=== PATIENT | female | born 1960 | race Hispanic/Latino ===

== ENCOUNTER 2018-08-05 13:25 | Emergency (ER) | payer MEDICARE ==
[~2018-08-05] VITALS: Ht 160 cm; Wt 61.2 kg
[2018-08-05] MEDS ORDERED: BELLADONNA ALK/PHENOBARBITAL 5 ML UDC ONE (14:13)
[2018-08-05] MEDS ORDERED: LIDOCAINE VISC 2% SOLN 15 ML UDC ONE (14:13)
[2018-08-05] MEDS ORDERED: MAGNESIUM/ALUMINUM/SIMETHICONE 30 ML UDC ONE (14:13)
[2018-08-05] MEDS ORDERED: DONNATAL/LIDOCAINE/MAALOX 30 ML SUSP PO NR (14:15)
[2018-08-05 14:24] LABS: BASOPHILS % 0.4 % (0.0-1.0); EOSINOPHILS # (AUTO) 0.1 (0.0-0.4); EOSINOPHILS % 1.5 % (0.0-6.0); HEMATOCRIT 35.6 % (34.2-44.1); HEMOGLOBIN 12.6 g/dL (12.0-16.0); LYMPHOCYTES # (AUTO) 1.7 (1.0-3.2); LYMPHOCYTES % 30.7 % (18.0-39.1); MEAN CORPUSCULAR HGB CONC 35.4 g/dL (31-35); MONOCYTES # (AUTO) 0.5 (0.2-0.8); MONOCYTES % 9.1 % (4.4-11.3); NEUTROPHILS # (AUTO) 3.1 (2.1-6.9); NEUTROPHILS % 58.1 % (38.7-80.0); PLATELET COUNT 132 x10e3/uL (140-360); RED BLOOD COUNT 4.34 x10e6/uL (3.6-5.1); RED CELL DISTRIBUTION WIDTH 12.4 % (11.7-14.4)
--- NOTE | 2018-08-05 14:30 | Diagnostic Imaging Report ---
EXAMINATION: CHEST SINGLE (PORTABLE) INDICATION: Chest pain. COMPARISON: 04/19/2010. FINDINGS: TUBES and LINES: None. LUNGS: Lungs are well inflated. Lungs are clear. There is no evidence of pneumonia or pulmonary edema. PLEURA: No pleural effusion or pneumothorax. HEART AND MEDIASTINUM: The cardiomediastinal silhouette is unremarkable. BONES AND SOFT TISSUES: No acute osseous lesion. Soft tissues are unremarkable. UPPER ABDOMEN: No free air under the diaphragm. IMPRESSION: No acute thoracic abnormality. Signed by: Dr. Lashonda Mike M.D. on 08/05/2018 2:26 PM
[2018-08-05 14:45] LABS: INR 0.89; PARTIAL THROMBOPLASTIN TIME 26.9 seconds (23.8-35.5); PROTHROMBIN TIME 12.9 seconds (11.9-14.5)
[2018-08-05 14:54] LABS: ALANINE AMINOTRANSFERASE 11 IU/L (0-55); ALBUMIN 3.8 g/dL (3.5-5.0); ALBUMIN/GLOBULIN RATIO 1.2 (0.8-2.0); ALKALINE PHOSPHATASE 66 IU/L (40-150); BLOOD UREA NITROGEN 16 mg/dL (7-26); BUN/CREATININE RATIO 21 (6-25); CALCIUM 9.3 mg/dL (8.4-10.2); CARBON DIOXIDE 23 mmol/L (22-29); CHLORIDE 100 mmol/L (98-107); CREATINE KINASE 63 IU/L (29-168); CREATININE, SERUM 0.76 mg/dL (0.57-1.11); EST GLOMERULAR FILTRATION RATE > 60 ML/MIN (60-); GLUCOSE 129 mg/dL (74-118); MAGNESIUM 1.9 MG/DL (1.3-2.1); SODIUM 135 mmol/L (136-145)
[2018-08-05 15:14] LABS: CLARITY,URINE CLEAR (CLEAR); COLOR,URINE YELLOW (YELLOW); KETONES,URINE NEGATIVE (NEGATIVE); LEUKOCYTE ESTERASE ,URINE NEGATIVE (NEGATIVE); NITRITE,URINE NEGATIVE (NEGATIVE); PROTEIN,URINE DIPSTICK NEGATIVE (NEGATIVE)
[2018-08-05 15:15] LABS: BACTERIA,URINE RARE /HPF; BILIRUBIN,URINE NEGATIVE (NEGATIVE); EPITHELIAL CELLS,URINE RARE /LPF; RBC,URINE 0-5 /HPF (0-5); URINE UROBILINOGEN 0.2 mg/dL (0.2 - 1); WBC,URINE (MAN) 0-5 /HPF (0-5)
[2018-08-05] MEDS ORDERED: POTASSIUM CHLORIDE 20 MEQ TAB CR PO NR (15:30)
[2018-08-05 20:13] VITALS: BP 145/90
== END 2018-08-05 20:19 | disposition home or self-care (01) ==
LOC: ER 13:25
DX: R07.89 Other chest pain (principal); E87.6 Hypokalemia; K52.9 Noninfective gastroenteritis and colitis, unspecified
CPT/HCPCS: 36415; 71045; 80053; 81001; 82550; 82553; 83735; 83880; 84484; 85025; 85610; 85730; 93005; 99284

== ENCOUNTER 2018-12-21 09:04 | Emergency (ER) | payer MEDICARE ==
[~2018-12-21] VITALS: Ht 160 cm; Wt 61.2 kg
--- OUTSIDE RECORDS SUMMARY | 2018-12-21 09:07 | XMS REPORT | Continuity of Care Document ---
Author Author [facility] Interface Address Unknown Phone Unavailable Problems Problem Status Onset Date Classification Date Reported Comments Source Diabetes II with Neuropathy Active Problem 08/12/2014 [facility] Hallux valgus Active Problem 08/12/2014 [facility] Medications Medication Details Route Status Patient Instructions Ordering Provider Order Date Source Ultracet 2 tablets as needed Orally Active 37.5-325 MG Orally every 6 hrs Gale 03/25/2014 [facility] [place] 1-2 tablet as needed Orally Active 10-325 MG Orally every 4-6 hrs Gale 12/12/2013 [facility] Allergies, Adverse Reactions, Alerts Substance Category Reaction Severity Reaction type Status Date Reported Comments Source Immunizations Immunization Date Given Site Status Last Updated Comments Source Results Order Name Results Value Reference Range Date Interpretation Comments Source Vital Signs Vital Sign Value Date Comments Source Weight 160 12/10/2013 [facility] Encounters Location Location Details Encounter Type Encounter Number Reason For Visit Attending Provider ADM Date DC Date Status Source [facility] pain [id number] 12/12/2013 12/12/2013 [facility] pain [id number] 12/12/2013 12/12/2013 [facility] pain [id number] 12/12/2013 12/12/2013 [facility] pain [id number] 12/12/2013 12/12/2013 [facility] pain [id number] 12/12/2013 12/12/2013 [facility] Refill [id number] 12/19/2013 12/19/2013 [facility] Refill [id number] 12/19/2013 12/19/2013 [place] [facility] Refill [id number] 12/19/2013 12/19/2013 [facility] Refill [id number] 12/19/2013 12/19/2013 [facility] Unknown [id number] 03/25/2014 03/25/2014 [facility] Unknown [id number] 03/25/2014 03/25/2014 [facility] Unknown [id number] 03/25/2014 03/25/2014 [facility] Other [id number] 05/19/2014 05/19/2014 [place] [facility] Other [id number] 05/19/2014 05/19/2014 [place] [facility] Unknown [id number] 06/06/2014 06/06/2014 [facility] Unknown [id number] 06/06/2014 06/06/2014 [facility] Unknown [id number] 06/25/2014 06/25/2014 [facility] Unknown [id number] 06/25/2014 06/25/2014 [facility] Procedures Procedure Code Date Perfomer Comments Source
--- OUTSIDE RECORDS SUMMARY | 2018-12-21 09:07 | XMS REPORT ---
Author Author Liban Gale Organization [employer] Address Unknown Phone Unavailable Care Team Providers Care Lead Project Engineer Name Role Phone Liban Gale Unavailable Encounters Encounter Location Date pain [facility] December 12, 2013 Refill [facility] December 19, 2013 Problems Problem Type Condition ICD-9 Code Onset Dates Condition Status Problem Diabetes II with Neuropathy 250.60 Active Problem Hallux valgus 735.0 Active Social History Social History Element Qualifiers Date Reported Do you smoke? . Answer: No December 17, 2013 Use of recreational / street drugs? . Answer: No December 17, 2013 Tobacco Use: . Are you a:: former smoker , How long has it been since you last smoked?: > 10 years December 17, 2013 Marital Status: . December 17, 2013 Do you exercise? . Answer: No December 17, 2013 Do you drink alcohol? . 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
--- OUTSIDE RECORDS SUMMARY | 2018-12-21 09:07 | XMS REPORT ---
Author Author Liban Gale Organization [employer] Address Unknown Phone Unavailable Care Team Providers Care Technical Sales Support Manager Name Role Phone Liban Gale Unavailable Encounters Encounter Location Date Other [facility] May 19, 2014 Unknown [facility] Jun 06, 2014 Unknown [facility] Jun 25, 2014 pain [facility] December 12, 2013 Refill [facility] December 19, 2013 Unknown [facility] March 25, 2014 Problems Problem Type Condition ICD-9 Code Onset Dates Condition Status Problem Diabetes II with Neuropathy 250.60 Active Problem Hallux valgus 735.0 Active Social History Social History Element Qualifiers Date Reported Do you smoke? . Answer: No January 21, 2014 Use of recreational / street drugs? . Answer: No January 21, 2014 Tobacco Use: . Are you a:: former smoker , How long has it been since you last smoked?: > 10 years January 21, 2014 Marital Status: . January 21, 2014 Do you exercise? . Answer: No January 21, 2014 Do you drink alcohol? . 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
--- OUTSIDE RECORDS SUMMARY | 2018-12-21 09:07 | XMS REPORT | Clinical Summary ---
Author Author [facility] Organization [facility] Address Unknown Phone Unavailable Care Team Providers Care Inside Sales Agent Name Role Phone Grace Mitchell PCP Allergies Comments Active Allergy Reactions Severity Noted Date heart stopped Methadone 03/29/2007 Enalapril Cough 03/29/2007 Losartan Cough 05/19/2016 heart stopped Benzodiazepines 03/29/2007 Medications End Date Status Medication Sig Dispensed Refills Start Date Active ASPIRIN 81 MG TAB 1 TABLET 0 DAILY Active ERGOCALCIFEROL, VITAMIN Take 1 0 D2, OR capsule by mouth weekly. Active gabapentin (NEURONTIN) Take 1 270 capsule 0 100 mg capsule by 6 capsuleIndications: mouth 3 times Uncontrolled type 2 daily. diabetes mellitus with peripheral neuropathy Active blood glucose test Check blood 50 Each 11 stripsIndications: glucose 3 6 Uncontrolled type 2 times daily diabetes mellitus with peripheral neuropathy Active lancets 28 Check blood 100 Each 11 gaugeIndications: glucose 3 6 Uncontrolled type 2 times daily. diabetes mellitus with peripheral neuropathy Active escitalopram oxalate Take 1 tablet 0 (LEXAPRO) 20 mg tablet by mouth 8 daily. Active metoprolol tartrate Take 0.5 90 tablet 1 (LOPRESSOR) 25 mg tablets by 8 tabletIndications: mouth 2 times Essential hypertension, daily. benign Active dicyclomine (BENTYL) 10 Take 1 90 capsule 1 mg capsuleIndications: capsule by 8 Irritable bowel syndrome mouth 3 times with diarrhea daily. Active metFORMIN (GLUCOPHAGE) Take 1 tablet 180 tablet 1 500 mg tabletIndications: by mouth 2 8 Type 2 diabetes mellitus times daily without complication, (with meals). without long-term current use of insulin Active OLANZapine (ZYPREXA) 5 mg Take 1 tablet 0 10/15/201 tablet by mouth at 8 bedtime nightly. Active blood glucose meter Use as 1 Kit 0 (PRECISION XTRA directed.. 8 GLUCOMETER)Indications: Type 2 diabetes mellitus without complication, without long-term current use of insulin Active blood glucose (PRECISION Use 2 times 50 Each 3 XTRA TEST STRIPS) test weekly (once 8 stripsIndications: Type 2 per day on diabetes mellitus without Mon,Thurs) to complication, without test blood long-term current use of sugar. insulin Active estrogen, Take 1 tablet 28 tablet 1 conjugated,-medroxyproges by mouth 8 terone (PREMPRO) daily. 0.625-2.5 mg per tabletIndications: Vasomotor symptoms due to menopause Active traMADol (ULTRAM) 50 mg Take 50 mg by 0 tablet mouth every 6 hours as needed for Pain. Active valsartan-hydrochlorothia Take 1 tablet 0 zide (DIOVAN HCT) by mouth 160-12.5 mg tablet daily. Active Saxagliptin (ONGLYZA) 5 Take by 0 mg Tab mouth. Active Misc. Devices (GLIPIZIDE) 0 Active glipiZIDE (GLUCOTROL XL) Take 2.5 mg 0 2.5 mg extended release by mouth tablet daily. Active hyoscyamine (LEVSIN/SL) Place 1 30 tablet 0 0.125 mg sublingual tablet under 9 tabletIndications: tongue every Nephrolithiasis, Bladder 4 hours as spasms needed (bladder spasms). Active tamsulosin (FLOMAX) 0.4 Take 1 30 capsule 3 mg extended release capsule by 9 capsuleIndications: mouth daily. Nephrolithiasis Active traMADol (ULTRAM) 50 mg Take 1 tablet 30 tablet 0 tabletIndications: by mouth 9 Nephrolithiasis, every 6 hours Displacement of ureteral as needed for stent, initial encounter, Pain. Pain 05/24/2018 Discontinued dicyclomine (BENTYL) 10 Take 1 90 capsule 1 mg capsuleIndications: capsule by 6 Irritable bowel syndrome mouth 3 times with diarrhea daily. 10/19/2018 Discontinued blood glucose Use as 1 Kit 0 meterIndications: directed.. 6 Uncontrolled type 2 diabetes mellitus with peripheral neuropathy 04/12/2018 Discontinued metoprolol tartrate Take 0.5 60 tablet 2 (LOPRESSOR) 25 mg tablets by 7 tabletIndications: mouth 2 times Essential hypertension, daily. benign 04/12/2018 Discontinued metFORMIN (GLUCOPHAGE) Take 1 tablet 180 tablet 1 500 mg tabletIndications: by mouth 2 7 Controlled type 2 times daily diabetes mellitus without (with meals). complication, without long-term current use of insulin 10/19/2018 Discontinued dicyclomine (BENTYL) 10 Take 1 60 capsule 0 mg capsuleIndications: capsule by 7 Irritable bowel syndrome mouth 3 times with diarrhea daily. 06/18/2018 Discontinued estrogen, Take 1 tablet 28 tablet 3 conjugated,-medroxyproges by mouth 8 terone (PREMPRO) daily. 0.625-2.5 mg per tabletIndications: Hormone imbalance 06/18/2018 Discontinued lamoTRIgine (LAMICTAL) 25 Take by 0 mg tablet mouth. 06/18/2018 Discontinued QUEtiapine (SEROQUEL) 100 Take 1 tablet 0 mg tablet by mouth 2 8 times daily. 06/18/2018 Discontinued metFORMIN (GLUCOPHAGE) Take 1 tablet 180 tablet 1 500 mg tabletIndications: by mouth 2 8 Type 2 diabetes mellitus times daily without complication, (with meals). without long-term current use of insulin 06/18/2018 tropicamide (MYDRIACYL) Instill 1 15 mL 0 0.5 % ophthalmic Drop in each 8 solutionIndications: Type eye once as 2 diabetes mellitus needed for up without complication, to 1 dose without long-term current (for poor use of insulin retina scan image). 10/19/2018 Discontinued lancets 28 Use 2 times 100 Each 1 gaugeIndications: Type 2 weekly as 8 diabetes mellitus without directed. complication, without long-term current use of insulin Active Problems Problem Noted Date Kidney stone 10/19/2018 Nephrolithiasis 10/19/2018 Overview: Added automatically from request for surgery [id number] Bipolar 1 disorder 06/18/2018 Schizophrenia 06/18/2018 Irritable bowel syndrome with diarrhea 04/07/2016 Anxiety 04/07/2016 Essential hypertension, benign Hepatitis C Proteinuria Pure hypercholesterolemia Uncontrolled type 2 diabetes mellitus with kidney complication, without long-term current use of insulin Left lower quadrant pain Thrombocytopenia Left flank pain S/P ureteral stent placement Encounters Care Team Description Date Type Specialty Siobhan Daly 10/22/2018 Anesthesia Event [place]ano Waldron MD CYSTOSCOPY, Left Retro Grade Pyelogram and Left Ureteral Stent Placement 10/22/2018 Surgery Romel Reyes MD Koka, Sagarika, MD Nephrolithiasis (Primary Dx); Left lower quadrant pain; Renal calculi; Thrombocytopenia; Bladder spasms; Displacement of ureteral stent, initial encounter; Pain; Essential hypertension, benign; Uncontrolled type 2 diabetes mellitus with kidney complication, without long- term current use of insulin 10/19/2018 Emergency - 10/23/2018 10/19/2018 Travel Grace Mitchell DO Type 2 diabetes mellitus without complication, without long-term current use of insulin (Primary Dx); Essential hypertension, benign; Preventative health care; Bipolar 1 disorder; Schizophrenia, unspecified type; Vasomotor symptoms due to menopause 06/18/2018 Office Visit [facility] Grace Mitchell DO Type 2 diabetes mellitus without complication, without long-term current use of insulin 06/18/2018 Orders Only [facility] Yoshi Ortiz III, MD Irritable bowel syndrome with diarrhea 05/24/2018 Refill [facility] Yoshi Ortiz III, MD Essential hypertension, benign (Primary Dx); Type 2 diabetes mellitus without complication, without long-term current use of insulin; Immunization due 04/12/2018 Office Visit Family Practice Pérez Paulino MD Anxiety (Primary Dx) 04/09/2018 Emergency Emergency Medicine after 10/25/2017 Immunizations Name Dates Previously Given Next Due Influenza Vaccine, 07/13/2017 Seasonal, Injectable PPV 23 (Pneumococcal 04/12/2018 Polysaccharide 23 [place]) Tdap (Tetanus Toxoid, 04/12/2018 Reduced Diphtheria Toxoid And Acellular Pertussis, Absorbed) Family History Medical History Relation Name Comments Arthritis Maternal Grandmother Asthma Maternal Grandmother Cancer Maternal Grandmother Diabetes Maternal Grandmother Heart Maternal Grandmother Hypertension Maternal Grandmother Stroke Maternal Grandmother Heart Mother Hypertension Mother Relation Name Status Comments Maternal Grandmother Mother Social History Date Tobacco Use Types Packs/Day Years Used Former Smoker Smokeless Tobacco: Never Used Comments: quit 17 years ago Alcohol Use Drinks/Week oz/Week Comments No Sex Assigned at Date Recorded Not on file Industry Job Start Date Occupation Not on file Not on file Not on file Travel End Travel History Travel Start No recent travel history available. Last Filed Vital Signs Time Taken Vital Sign Reading 10/23/2018 7:19 AM [facility] Blood Pressure 133/71 10/23/2018 7:19 AM [facility] Pulse 76 10/23/2018 7:19 AM [facility] Temperature 36.8 C (98.2 F) 10/23/2018 7:19 AM [facility] Respiratory Rate 18 10/22/2018 3:10 PM [facility] Oxygen Saturation 97% - Inhaled Oxygen - Concentration 10/23/2018 4:00 AM [facility] Weight 65 kg (143 lb 6.4 oz) 10/19/2018 9:00 PM [facility] Height 162.6 cm (5' 4") 10/19/2018 9:00 PM [facility] Body Mass Index 24.61 Plan of Treatment Care Team Description Date Type Specialty Yoshi Ortiz III, MD [address] [place] [address] [id number] [place] [address] [phone] 11/05/2018 Office Visit Family Practice 11/15/2018 Office Visit Urology Health Maintenance Due Date Last Done Comments DM Retinal Exam (Yearly) 06/28/2018 06/28/2017, 05/11/2016 Breast Cancer Scrn 07/18/2018 07/18/2017, 05/11/2016, 06/11/2007 (Yearly) Cervical Cancer Scrn (3 12/03/2018 12/04/2015 (Previously completed - Yrs) External) DM Foot Exam (Yearly) 04/12/2019 04/12/2018, 07/13/2017, 06/15/2017, Additional history exists Colorectal Cancer Scrn 07/13/2019 07/13/2018, 06/22/2017, 04/13/2016 Annual (FIT/FOBT) Age 50 to 75 DM HGBA1C (Yearly) 10/20/2019 10/20/2018, 06/12/2018, 06/01/2017, Additional history exists Goals Goal Patient Associated Recent Progress Patient-Stat Author Goal Type Problems ed? gain weight General Yes Eveline Belle Note: Would like to gain weight back Eat Healthy Lifestyle No Eveline Belle Note: Unable to eat regular food Implants Device Identifier Shelf Expiration Date Model / Serial / Lot Implanted Type Area Manufactur er 02/25/2021 [id number] / / Lbj Stent Ureteral 6fr 24cm Ascerta Stent Left: Ureter(s) [facility] - [id number] cturer Implanted: Qty: 1 on 10/22/2018 by Rohith Boyle ResidentMD Procedures Comments Procedure Name Priority Date/Time Associated Diagnosis GLUCOSE POC Routine 10/23/2018 11:26 AM [facility] GLUCOSE POC Routine 10/23/2018 6:46 AM [facility] MAGNESIUM Routine 10/23/2018 5:20 AM [facility] PHOSPHORUS Routine 10/23/2018 5:20 AM [facility] BASIC METABOLIC PANEL Routine 10/23/2018 5:20 AM [facility] CBC/DIFF Routine 10/23/2018 5:20 AM [facility] GLUCOSE POC Routine 10/22/2018 8:34 PM [facility] GLUCOSE POC Routine 10/22/2018 4:26 PM [facility] GLUCOSE POC Routine 10/22/2018 2:46 PM [facility] [id number] Routine 10/22/2018 1:59 PM [facility] Procedure Note - Siobhan Daly - 10/22/2018 1:59 PM [facility] Intubation Date/Time: 10/22/2018 1:33 PM Urgency: elective Airway not difficult General Informatio n and Staff Patient location during procedure: OR Anesthesio logist: Adriana Winslow MD Resident/C RNA: Alexys Arreguin CRNA Other anesthesia staff: Siobhan Daly Performed: anesthesio logist Indicatio ns and Patient Condition Indication s for airway management : anesthesia Spontaneou s ventilatio n: present Preoxygena dashawn: yes Patient position: sniffing Mask difficulty assessment : 0 - not attempted Final Airway Details Final airway type: endotrache al airway Successful airway: ETT Cuffed: yes Successful intubation technique: direct Facilitati ng devices/me thods: intubating stylet Endotrache al tube insertion site: oral Blade: Sumit Blade size: #3 Cords visualized : grade 1 Placement verified by: chest auscultati on and capnometry Measured from: lips ETT to lips (cm): 21 Number of attempts at approach: 1 UROL - CYSTOSCOPY 10/22/2018 Nephrolithiasis 11:35 AM [facility] GLUCOSE POC Routine 10/22/2018 10:51 AM [facility] U/S ABDOMEN LIMITED Routine 10/22/2018 Thrombocytopenia 9:45 AM [facility] GLUCOSE POC Routine 10/22/2018 6:59 AM [facility] IRON PROFILE Routine 10/22/2018 4:40 AM [facility] FERRITIN Routine 10/22/2018 4:40 AM [facility] VITAMIN B12 Routine 10/22/2018 4:40 AM [facility] LIVER PROFILE Routine 10/22/2018 4:40 AM [facility] PHOSPHORUS Routine 10/22/2018 4:40 AM [facility] MAGNESIUM Routine 10/22/2018 4:40 AM [facility] CBC/DIFF Routine 10/22/2018 4:40 AM [facility] BASIC METABOLIC PANEL Routine 10/22/2018 4:40 AM [facility] HCV RNA QUANT, PCR Routine 10/22/2018 4:40 AM [facility] GLUCOSE POC Routine 10/21/2018 8:54 PM [facility] GLUCOSE POC Routine 10/21/2018 4:42 PM [facility] GLUCOSE POC Routine 10/21/2018 4:10 PM [facility] GLUCOSE POC Routine 10/21/2018 11:15 AM [facility] CITRATED PLATELET Routine 10/21/2018 10:48 AM [facility] HIV-1/HIV-2 ROUTINE Routine 10/21/2018 SCREENING 10:48 AM [facility] VITAMIN B12 Routine 10/21/2018 10:48 AM [facility] FERRITIN Routine 10/21/2018 10:48 AM [facility] IRON PROFILE Routine 10/21/2018 10:48 AM [facility] CBC/DIFF Routine 10/21/2018 10:48 AM [facility] PHOSPHORUS Routine 10/21/2018 8:56 AM [facility] MAGNESIUM Routine 10/21/2018 8:56 AM [facility] BASIC METABOLIC PANEL Routine 10/21/2018 8:56 AM [facility] CBC/DIFF Routine 10/21/2018 8:56 AM [facility] GLUCOSE POC Routine 10/21/2018 6:55 AM [facility] GLUCOSE POC Routine 10/20/2018 9:06 PM [facility] GLUCOSE POC Routine 10/20/2018 4:41 PM [facility] GLUCOSE POC Routine 10/20/2018 11:19 AM [facility] GLUCOSE POC Routine 10/20/2018 7:12 AM [facility] DUPLEX DOPPLER UPPER STAT 10/20/2018 EXTREMITY VENOUS, 6:20 AM [facility] UNILATERAL OR LIMITED SEQUENTIAL COMPRESSION Routine 10/20/2018 PUMP 4:59 AM [facility] HEMOGLOBIN A1C Routine 10/20/2018 4:00 AM [facility] PHOSPHORUS Routine 10/20/2018 4:00 AM [facility] MAGNESIUM Routine 10/20/2018 4:00 AM [facility] BASIC METABOLIC PANEL Routine 10/20/2018 4:00 AM [facility] CBC/DIFF Routine 10/20/2018 4:00 AM [facility] URINE DRUG SCREEN Routine 10/20/2018 4:00 AM [facility] SEQUENTIAL COMPRESSION Routine 10/19/2018 PUMP 10:15 PM [facility] GLUCOSE POC Routine 10/19/2018 9:20 PM [facility] ABG POC Routine 10/19/2018 8:00 PM [facility] URINE CULTURE Routine 10/19/2018 3:00 PM [facility] UA CHEMISTRIES STAT 10/19/2018 3:[address] ABDOMEN AND PELVIS STAT 10/19/2018 Left lower quadrant pain CONTRAST 2:28 PM [facility] 12 LEAD EKG Routine 10/19/2018 12:08 PM [facility] BMP POC Routine 10/19/2018 12:05 PM [facility] VBG POC Routine 10/19/2018 12:05 PM [facility] TROPONIN I POC Routine 10/19/2018 12:03 PM [facility] LIPASE STAT 10/19/2018 11:58 AM [facility] LIVER PROFILE STAT 10/19/2018 11:58 AM [facility] CBC/DIFF STAT 10/19/2018 11:58 AM [facility] OCCULT BLOOD ICT Routine 07/13/2018 Preventative health care 2:19 PM [facility] HIV-1/HIV-2 ROUTINE Routine 06/12/2018 Type 2 diabetes mellitus SCREENING 8:15 AM CDT without complication, without long-term current use of insulin UREA NITROGEN/CREA Routine 06/12/2018 Type 2 diabetes mellitus 8:15 AM CDT without complication, without long-term current use of insulin LIPID PROFILE Routine 06/12/2018 Type 2 diabetes mellitus 8:15 AM CDT without complication, without long-term current use of insulin GLUCOSE Routine 06/12/2018 Type 2 diabetes mellitus 8:15 AM CDT without complication, without long-term current use of insulin CBC/DIFF Routine 06/12/2018 Type 2 diabetes mellitus 8:15 AM CDT without complication, without long-term current use of insulin ELECTROLYTES Routine 06/12/2018 Type 2 diabetes mellitus 8:15 AM CDT without complication, without long-term current use of insulin HEMOGLOBIN A1C Routine 06/12/2018 Type 2 diabetes mellitus 8:15 AM CDT without complication, without long-term current use of insulin MICROALBUM, URINE Routine 04/12/2018 Type 2 diabetes mellitus 10:55 AM CDT without complication, without long-term current use of insulin DIABETIC FOOT EXAM Routine 04/12/2018 Type 2 diabetes mellitus 10:50 AM CDT without complication, without long-term current use of insulin BMP POC Routine 04/09/2018 4:49 AM CDT UA CHEMISTRIES STAT 04/09/2018 4:40 AM CDT after 10/25/2017 Results * GLUCOSE POC (10/23/2018 11:26 AM [facility]) Only the most recent of 17 results within the time period is included. Glucose POC 129 (H) 74 - 106 mg/dL [facility] Performing Organization Address [facility] Phone Number [facility] 1 * PHOSPHORUS (10/23/2018 5:20 AM [facility]) Only the most recent of 4 results within the time period is included. Phosphorus 3.5 2.5 - 5.0 mg/dL [facility] 1 Specimen Blood Performing Organization Address [facility] Phone Number [facility] 1 * MAGNESIUM (10/23/2018 5:20 AM [facility]) Only the most recent of 4 results within the time period is included. Magnesium 2.1 1.9 - 2.7 mg/dL [facility] 1 Specimen Blood Performing Organization Address [facility] Phone Number [facility] 1 * CBC/DIFF (10/23/2018 5:20 AM [facility]) Only the most recent of 7 results within the time period is included. WBC 4.8 4.5 - 11.0 K/uL [facility] 2 RBC 3.98 (L) 4.20 - 5.40 M/uL [facility] 2 Hemoglobin 11.6 (L) 12.0 - 16.0 g/dL [facility] 2 Hematocrit 34.0 (L) 37.0 - 47.0 % [facility] 2 MCV 85 82 - 92 fL [facility] 2 MCH 29.1 27.0 - 32.0 pg [facility] 2 MCHC 34.1 32.0 - 36.0 g/dL [facility] 2 RDW 36.9 36.4 - 46.3 fL [facility] 2 Platelet 105 (L) 150 - 400 K/uL [facility] 2 Mean Platelet 10.0 9.4 - 12.4 fL [facility] Volume [facility] 2 Percent NRBC 0.0 [facility] 2 Absolute NRBC 0.00 [facility] 2 Neutrophil 59.2 34.0 - 70.0 % [facility] 2 Lymphocyte 29.9 20.0 - 50.0 % [facility] 2 Monocyte 7.2 5.0 - 12.0 % [facility] 2 Eosinophil 2.9 0.7 - 5.0 % [facility] 2 Basophil 0.4 0.1 - 1.2 % [facility] 2 Pct Immat Gran 0.4 0.0 - 0.5 [facility] 2 Neutrophil, Abs 2.81 1.56 - 6.13 K/uL [facility] 2 Lymphocyte, Abs 1.42 1.18 - 3.74 K/uL [facility] 2 Monocyte, Abs 0.34 0.24 - 0.36 K/uL [facility] 2 Eosinophil, Abs 0.14 0.04 - 0.36 K/uL [facility] 2 Basophil, Abs 0.02 0.01 - 0.08 K/uL [facility] 2 Absol Immat 0.02 0.00 - 0.03 K/uL [facility] Gran [facility] 2 Specimen Blood Performing Organization Address City/State/Zipcode Phone Number [facility] * BASIC METABOLIC PANEL (10/23/2018 5:20 AM [facility]) Only the most recent of 4 results within the time period is included. CO2 29 21 - 31 mmol/L [facility] 1 Chloride 105 98 - 107 mmol/L [facility] 1 Potassium 3.7 3.5 - 5.1 mmol/L [facility] 1 Sodium 142 136 - 145 mmol/L [facility] 1 Glucose 86 70 - 110 mg/dL [facility] 1 Urea Nitrogen 8 7 - 25 mg/dL [facility] 1 Creatinine 0.60 0.6 - 1.2 mg/dL [facility] 1 Anion Gap 8 [facility] 1 Calcium 8.0 (L) 8.6 - 10.3 mg/dL [facility] 1 GFR, Estimated >60 mL/min/1.73 m2 [facility] 1 GFR, Estim, >60 mL/min/1.73 m2 [facility] Afr-Am [facility] 1 Specimen Blood Performing Organization Address City/State/Zipcode Phone Number [facility] * U/S ABDOMEN LIMITED (10/22/2018 9:45 AM [facility]) Impressions Performed At IMPRESSION: SMS 1.Spleen size is at the upper limits of normal. 2.Mild coarsened hepatic echotexture suggesting possible underlying hepatocellular disease. 3.Surgically absent gallbladder. This [facility] radiology report is a preliminary resident dictation until finalized by an attending.Changes to this preliminary report may occur in an additional preliminary or finalized version. Dictated By: Ricardo Rich MD, 10/22/2018 10:05 AM I have reviewed the study and agree with the findings in this report. Signed By: Lex Diamond MD, 10/22/2018 10:30 AM Narrative Performed At EXAM: US ABDOMEN LIMITED [facility] DATE: 10/22/2018 6:44 AM INDICATION: Thrombocytopenia. Thrombocytopenia ADDITIONAL INFORMATION: None. COMPARISON: CT abdomen pelvis from 10/19/2018. TECHNIQUE: Multiplanar grayscale and color Doppler ultrasound of the right upper quadrant. FINDINGS: Liver: Craniocaudal length: 15 cm. Echogenicity: Mildly coarsened. Surface: Normal. Mass (size and location): None. Main portal vein: Caliber: 1.2 cm. Flow: Hepatopetal. Bile ducts: Common bile duct diameter: 0.4 cm. Intrahepatic ducts: Normal. Gallbladder: Post cholecystectomy. Pancreas: Partially obscured. No focal lesions. Spleen: Size: 12.8 x 6.4 x 6.9 cm. Mass or focal lesion (size and location): Focal shadowing hyperechogenicity within the splenic parenchyma measuring 0.4 cm most likely represents a splenic granuloma possibly from prior infection, correlating with focal splenic calcification on the recent CT. Right kidney: Size: 11.1 x 4.9 x 5.8 cm. Cortical thickness: Normal. Hydronephrosis: None. Echogenicity: Normal. Calculi: None. Cysts/Masses: None. Free fluid: None. Other: None. Procedure Note Interface, Rad/Mammog In - 10/22/2018 10:54 AM [facility] EXAM: US ABDOMEN LIMITED DATE: 10/22/2018 6:44 AM INDICATION: Thrombocytopenia. Thrombocytopenia ADDITIONAL INFORMATION: None. COMPARISON: CT abdomen pelvis from 10/19/2018. TECHNIQUE: Multiplanar grayscale and color Doppler ultrasound of the right upper quadrant. FINDINGS: Liver: Craniocaudal length: 15 cm. Echogenicity: Mildly coarsened. Surface: Normal. Mass (size and location): None. Main portal vein: Caliber: 1.2 cm. Flow: Hepatopetal. Bile ducts: Common bile duct diameter: 0.4 cm. Intrahepatic ducts: Normal. Gallbladder: Post cholecystectomy. Pancreas: Partially obscured. No focal lesions. Spleen: Size: 12.8 x 6.4 x 6.9 cm. Mass or focal lesion (size and location): Focal shadowing hyperechogenicity within the splenic parenchyma measuring 0.4 cm most likely represents a splenic granuloma possibly from prior infection, correlating with focal splenic calcification on the recent CT. Right kidney: Size: 11.1 x 4.9 x 5.8 cm. Cortical thickness: Normal. Hydronephrosis: None. Echogenicity: Normal. Calculi: None. Cysts/Masses: None. Free fluid: None. Other: None. IMPRESSION IMPRESSION: 1. Spleen size is at the upper limits of normal. 2. Mild coarsened hepatic echotexture suggesting possible underlying hepatocellular disease. 3. Surgically absent gallbladder. This [facility] radiology report is a preliminary resident dictation until finalized by an attending. Changes to this preliminary report may occur in an additional preliminary or finalized version. Dictated By: Ricardo Rich MD, 10/22/2018 10:05 AM I have reviewed the study and agree with the findings in this report. Signed By: Lex Diamond MD, 10/22/2018 10:30 AM Performing Organization Address City/[facility]/[employer] Phone Number SMS * HCV RNA QUANT, PCR (10/22/2018 4:40 AM BELT GLASS SANDER) HCV RNA QUANT, Not detected IU/mL BT MOLECULAR PCR Comment: PATHOLOGY This test utilizes FDA cleared STEPHANIE AmpliPrep/STEPHANIE TaqMan HCV test, v2.0 from [employer] which allows detection of viral loads between 15 copies/mL and 100,000,000 of plasma. When the result is less than 15 copies/mL of HCV RNA is obtained, the test will be reported as less than 15 copies/mL. STEPHANIE AmpliPrep/STEPHANIE TaqMan HCV test, v2.0 is NOT intended for use as a screening test for the presence of HCV RNA in blood or as a diagnostic test to confirm the presence of HCV infection. This test is intended for use as an aid in the management of patients with HCV infection. Specimen Blood Performing Organization Address [facility] Phone Number MISYS MOLECULAR PATHOLOGY * FERRITIN (10/22/2018 4:40 AM BELT GLASS SANDER) Only the most recent of 2 results within the time period is included. Ferritin 24.00 11.0 - 306.8 ng/mL [facility] MAIN-STATION 1 Performing Organization Address [facility] Phone Number MISYS [facility] MAIN-STATION 1 * VITAMIN B12 (10/22/2018 4:40 AM BELT GLASS SANDER) Only the most recent of 2 results within the time period is included. Vitamin B12 279 211 - 911 pg/mL BT MAIN-STATION 1 Performing Organization Address [facility] Phone Number MISYS BT MAIN-STATION 1 * LIVER PROFILE (10/22/2018 4:40 AM BELT [facility]ASS SANDER) Only the most recent of 2 results within the time period is included. T Protein 5.2 (L) 6.0 - 8.3 g/dL [facility] MAIN-STATION 1 Albumin 3.1 (L) 3.7 - 5.3 g/dL [facility] MAIN-STATION 1 T Bilirubin 0.6 0.2 - 1.2 mg/dL [facility] MAIN-STATION 1 Alk Phos 36 34 - 104 U/L [facility] MAIN-STATION 1 AST 14 13 - 39 U/L [facility] MAIN-STATION 1 ALT 9 7 - 52 U/L [facility] MAIN-STATION 1 D Bilirubin 0.2 0.0 - 0.2 mg/dL [facility] MAIN-STATION 1 Specimen Blood Performing Organization Address [facility] Phone Number MISYS [facility] MAIN-STATION 1 * IRON PROFILE (10/22/2018 4:40 AM [facility]T [facility] SANDER) Only the most recent of 2 results within the time period is included. Iron 58 50 - 212 ug/dL BT MAIN-STATION 1 TIBC 333 250 - 450 ug/dL BT MAIN-STATION 1 % Iron Sat 17 % BT MAIN-STATION 1 Performing Organization Address [facility] Phone Number MISYS BT MAIN-STATION 1 * CITRATED PLATELET (10/21/2018 10:48 AM BELT GLASS SANDER) Citrated 79.2 [facility] Platelet MAIN-STATION 2 Performing Organization Address [facility] Phone Number MISYS [facility] MAIN-STATION 2 * HIV-1/HIV-2 ROUTINE SCREENING (10/21/2018 10:48 AM BELT GLASS SANDER) Only the most recent of 2 results within the time period is included. HIV-1/HIV-2 Negative NEG [facility] BLOOD BANK Performing Organization Address [facility] Phone Number [facility] BLOOD BANK * DUPLEX DOPPLER UPPER EXTREMITY VENOUS, UNILATERAL OR LIMITED (10/20/2018 6:20 AM BELT GLASS SANDER) Impressions Performed At IMPRESSION: SMS 1.No deep venous thrombosis (DVT) in the interrogated deep veins of the left upper extremity. 2.Mild left upper extremity edema without drainable collections. Signed By: Michoacano Betts MD, 10/20/2018 9:14 AM Narrative Performed At EXAM:DUPLEX DOPPLER UPPER EXTREMITY VENOUS, LEFT US SMS DATE: 10/20/2018 6:20 AM INDICATION: r/o dvt COMPARISON: None available. TECHNIQUE: Grayscale real-time, color, and spectral Doppler imaging of the left upper extremity venous system was performed. FINDINGS: Left Upper Extremity Veins: Internal Jugular: Patent. Subclavian: Patent. Axillary: Patent. Brachial: Patent. Basilic: Patent. Cephalic: Compressible. Other: Mild left upper extremity edema. No drainable collections. Procedure Note Interface, Rad/Mammog In - 10/20/2018 9:20 AM BELT GLASS SANDER EXAM: DUPLEX DOPPLER UPPER EXTREMITY VENOUS, LEFT US DATE: 10/20/2018 6:20 AM INDICATION: r/o dvt COMPARISON: None available. TECHNIQUE: Grayscale real-time, color, and spectral Doppler imaging of the left upper extremity venous system was performed. FINDINGS: Left Upper Extremity Veins: Internal Jugular: Patent. Subclavian: Patent. Axillary: Patent. Brachial: Patent. Basilic: Patent. Cephalic: Compressible. Other: Mild left upper extremity edema. No drainable collections. IMPRESSION IMPRESSION: 1. No deep venous thrombosis (DVT) in the interrogated deep veins of the left upper extremity. 2. Mild left upper extremity edema without drainable collections. Signed By: Michoacano Betts MD, 10/20/2018 9:14 AM Performing Organization Address City/[facility] Phone Number SMS * HEMOGLOBIN A1C (10/20/2018 4:00 AM [facility]T [facility] SANDER) Only the most recent of 2 results within the time period is included. Hemoglobin A1c 5.4 4.3 - 6.1 % LB MAIN-STATION 1 Est Average 108.3 mg/dL LB Gluc MAIN-STATION 1 Specimen Blood Performing Organization Address [facility] Phone Number MISYS [facility] MAIN-STATION 1 * URINE DRUG SCREEN (10/20/2018 4:00 AM [facility]T [facility] SANDER) Amphetamine Negative NEG [facility] Comment: MAIN-STATION 1 Calibrated Standard: D-Methamphetamine Positive if urine level >so=4266 ng/mL Test performed on [id number] using [employer] Immunoassay Barbiturate Negative NEG [facility] Comment: MAIN-STATION 1 Calibrated Standard: Secobarbital Positive if urine level is >jd=778 ng/mL Test performed on [id number] using [employer] Immun[employer]assay Benzodiazepine Negative NEG [facility] Comment: MAIN-STATION 1 Calibrated Standard: Lormethazepam Positive if urine level is >ir=254 ng/mL Test performed on [id number] using [employer] Immun[employer] Cannabinoid Negative NEG [facility] Comment: MAIN-STATION 1 Calibrated Standard: 11 nor-delta(9)-THC carboxylic a Positive if urine level >or=50 Test performed on [id number] using [employer] Immunoassay Cocaine Negative NEG [facility] Comment: MAIN-STATION 1 Calibrated Standard: Benzoylecgonine Positive if urine level >vo=261 Test performed on [id number] using [employer] Immun[employer] Opiate, Ur Positive (A) NEG [facility] Comment: MAIN-STATION 1 Calibrated Standard: Morphine Positive if urine level >pc=479 Test performed on [id number] using [employer] Immunoassay PCP Negative NEG LB Comment: MAIN-STATION 1 Calibrated Standard: Phencyclidine Positive if urine level >or=25 Test performed on [id number] using [employer] Immunoassay Urine Toxicology Screen results are to be used only for Medical purposes. Specimen Urine Performing Organization Address [facility] Phone Number MISYS [facility] MAIN-STATION 1 * ABG POC (10/19/2018 8:00 PM BELT [employer] SANDER) pH, Art POC 7.41Comment: Physician 7.35 - 7.45 [facility] Notified MAIN-STATION 1 pCO2,Art POC 39.1 32.0 - 45.0 mm Hg [facility] MAIN-STATION 1 pO2, Art POC 51 (L) 72 - 104 mm Hg [facility] MAIN-STATION 1 Base Excess, 0 mmol/L [facility] POC MAIN-STATION 1 HCO3, Art POC 25.0 22.0 - 26.0 mmol/L [facility] MAIN-STATION 1 % Sat, Art POC 86 (L) 95 - 99 % [facility] MAIN-STATION 1 Lactic Acid POC 2.71 (H) 0.4 - 2.0 mmol/L [facility] MAIN-STATION 1 Sample Type Art [facility] MAIN-STATION 1 TCO2, ART POC 26 21 - 32 mmol/L [facility] MAIN-STATION 1 Performing Organization Address [facility] Phone Number MILAN [facility] MAIN-STATION 1 * UA CHEMISTRIES (10/19/2018 3:00 PM BELT [employer] SANDER) Only the most recent of 2 results within the time period is included. Color Yellow [facility] MAIN-STATION 2 Clarity Clear [facility] MAIN-STATION 2 Spec [place] 1.030 1.001 - 1.035 [facility] MAIN-STATION 2 pH 7.0 5 - 8 [facility] MAIN-STATION 2 Protein 1+ (A) NEG [facility] MAIN-STATION 2 Glucose 2+ (A) NEG [facility] MAIN-STATION 2 Ketone 1+ (A) NEG [facility] MAIN-STATION 2 Bilirubin Negative NEG [facility] MAIN-STATION 2 Nitrate Negative NEG [facility] MAIN-STATION 2 Urobilinogen <1.0 0.2 - 1.0 EU/dL LB MAIN-STATION 2 Leukocyte Negative NEG [facility] MAIN-STATION 2 Blood 3+ (A) NEG [facility] MAIN-STATION 2 RBC >182 (H) 0 - 4 /HPF [facility] MAIN-STATION 2 WBC 1 0 - 5 /HPF [facility] MAIN-STATION 2 Epithelial Cell 2 /HPF [facility] MAIN-STATION 2 Mucous Present [facility] MAIN-STATION 2 Specimen Urine Performing Organization Address [facility] Phone Number MISYS [facility] MAIN-STATION 2 * URINE CULTURE (10/19/2018 3:00 PM BELT [facility]ASS SANDER) Spec Clean catch urine [facility] Description MICROBIOLOGY Order Comments None [facility] MICROBIOLOGY Culture Multiple organisms present: no BT MICROBIOLOGY further work workup will be performed Report Status Final 10/25/2018 BT MICROBIOLOGY Specimen Urine clean catch - CLEAN CATCH URINE Performing Organization Address [facility] Phone Number MISYS [facility] MICROBIOLOGY BT MICROBIOLOGY * CT ABDOMEN AND PELVIS CONTRAST (10/19/2018 2:28 PM BELT GLASS SANDER) Impressions Performed At IMPRESSION: SMS 1. Left side obstructive uropathy with two 3-4 mm diameter calculi at about the level of the L3 inferior endplate and proximal hydroureter and pyelosinus leakage of urine. 2. Prior cholecystectomy. Signed By: Riley Rider MD, 10/19/2018 2:50 PM Narrative Performed At EXAM: CT ABDOMEN AND PELVIS WITH CONTRAST SMS DATE: 10/19/2018 2:37 PM INDICATION:abdominal pain DISCUSSION:Following uncomplicated intravenous administration of 99 mL Omnipaque 300 iodinated contrast, volumetric images were obtained in axial, sagittal and coronal orientation from the lung bases through the ischial tuberosities.Coronal vascular MIP images are also included. No pulmonary or pleural-based abnormality is identified.No pneumothorax is identified.No cardiac or other mediastinal injury is identified.No vascular injury is identified. There are 2 small calculi in the proximal left ureter at the level of the L3 inferior endplate, measuring about 6 x 7 mm in total. Thus, each calculus is on the order of approximately 3-4 mm. Proximal to these calculi, the kidney shows hydronephrosis and perinephric fluid that is most consistent with pyelosinus leakage of urine. Contrast media administered intravenously flows faster through the right kidney than the left. Also of note, there is an approximately 3.5 cm cyst on the left kidney lower pole. The liver, spleen, pancreas and adrenal glands are unremarkable. Surgical clips are present in the right upper abdominal quadrant, consistent with prior cholecystectomy. No bowel abnormality is identified.No free peritoneal gas or fluid is identified.The urinary bladder and organs of reproduction are unremarkable. No spinal injury is identified. No other bony abnormality is seen. Procedure Note Interface, Rad/Mammog In - 10/19/2018 2:55 PM BELT [employer]ASS SANDER EXAM: CT ABDOMEN AND PELVIS WITH CONTRAST DATE: 10/19/2018 2:37 PM INDICATION: abdominal pain DISCUSSION: Following uncomplicated intravenous administration of 99 mL Omnipaque 300 iodinated contrast, volumetric images were obtained in axial, sagittal and coronal orientation from the lung bases through the ischial tuberosities. Coronal vascular MIP images are also included. No pulmonary or pleural-based abnormality is identified. No pneumothorax is identified. No cardiac or other mediastinal injury is identified. No vascular injury is identified. There are 2 small calculi in the proximal left ureter at the level of the L3 inferior endplate, measuring about 6 x 7 mm in total. Thus, each calculus is on the order of approximately 3-4 mm. Proximal to these calculi, the kidney shows hydronephrosis and perinephric fluid that is most consistent with pyelosinus leakage of urine. Contrast media administered intravenously flows faster through the right kidney than the left. Also of note, there is an approximately 3.5 cm cyst on the left kidney lower pole. The liver, spleen, pancreas and adrenal glands are unremarkable. Surgical clips are present in the right upper abdominal quadrant, consistent with prior cholecystectomy. No bowel abnormality is identified. No free peritoneal gas or fluid is identified. The urinary bladder and organs of reproduction are unremarkable. No spinal injury is identified. No other bony abnormality is seen. IMPRESSION IMPRESSION: 1. Left side obstructive uropathy with two 3-4 mm diameter calculi at about the level of the L3 inferior endplate and proximal hydroureter and pyelosinus leakage of urine. 2. Prior cholecystectomy. Signed By: Riley Rider MD, 10/19/2018 2:50 PM Performing Organization Address City/State/Zipcode Phone Number SMS * 12 LEAD EKG (10/19/2018 12:08 PM BELT GLASS SANDER) 12 LEAD EKG FOR [facility] Date:2018-10-19 Pat Name: NADIA BUCK Department: [id number] Room: Gender: Ampoule Sealer: [phone] Requested By: PÉREZ Hart Order Number: [id number] Reading MD: Randy Arteaga Measurements Intervals [place] Rate: 91 P:37 SC: 161 QRS: 66 QRSD: 84 T:69 QT: 385 QTc:476 Interpretive Statements SINUS RHYTHM WITH FREQUENT VENTRICULAR PREMATURE COMPLEXES Abnormal ECG Electronically Signed On 10-19-2018 14:00:24 BELT GLASS SANDER by Randy Arteaga Performing Organization Address [facility] Phone Number SMS * VBG POC (10/19/2018 12:05 PM BELT GLASS SANDER) pH, Taj POC 7.47 (H)Comment: Physician 7.33 - 7.43 LB Notified MAIN-STATION 1 pCO2, Taj POC 29.9 (L) 38.0 - 50.0 mm Hg [facility] MAIN-STATION 1 pO2, Taj POC 14 (L) 50 - 75 mm Hg LB MAIN-STATION 1 Base Deficit, 1 LB Taj POC MAIN-STATION 1 HCO3, Taj POC 21.8 (L) 22.0 - 26.0 mmol/L LB MAIN-STATION 1 % Sat, Taj POC 21 (L) 60 - 85 % LB MAIN-STATION 1 Lactic Acid, 4.74 (H) 0.4 - 2.0 mmol/L [facility] Taj POC MAIN-STATION 1 Sample Type Taj [facility] MAIN-STATION 1 TCO2, TAJ POC 23 21 - 32 mmol/L [facility] MAIN-STATION 1 Performing Organization Address [facility] Phone Number MISYS [facility] MAIN-STATION 1 * BMP POC (10/19/2018 12:05 PM BELT [employer]ASS SANDER) Only the most recent of 2 results within the time period is included. CO2 POC 22Comment: Physician Notified 21 - 32 mmol/L LB MAIN-STATION 1 Chloride POC 101 98 - 107 mmol/L [facility] MAIN-STATION 1 Potassium POC 4.0 3.50 - 5.10 mmol/L [facility] MAIN-STATION 1 Sodium POC 139 136 - 145 mmol/L [facility] MAIN-STATION 1 Glucose POC 238 (H) 74 - 106 mg/dL [facility] MAIN-STATION 1 Urea Nitrogen 15 7 - 18 mg/dL [facility] POC MAIN-STATION 1 Creatinine POC 0.8 0.6 - 1.3 mg/dL [facility] MAIN-STATION 1 Calcium Ionized 1.03 (L) 1.15 - 1.29 mmol/L [facility] POC MAIN-STATION 1 Hemoglobin POC 13.9 12.0 - 16.0 g/dL [facility] MAIN-STATION 1 Hematocrit POC 41.0 37.0 - 47.0 % [facility] MAIN-STATION 1 GFR, Estimated >60 mL/min/1.73 m2 [facility] MAIN-STATION 1 GFR, Estim, >60 mL/min/1.73 m2 [facility] Afr-Am MAIN-STATION 1 Performing Organization Address [facility] Phone Number [facility] MAIN-STATION 1 * TROPONIN I POC (10/19/2018 12:03 PM BELT GLASS SANDER) Pathologist [facility] Troponin POC 0.01Comment: Physician 0.00 - 0.08 ng/mL [facility] Notified MAIN-STATION 1 Performing Organization Address [facility] Phone Number MISYS [facility] MAIN-STATION 1 * LIPASE (10/19/2018 11:58 AM BELT GLASS SANDER) Pathologist [facility] Lipase 32 11 - 81 U/L [facility] MAIN-STATION 1 Specimen Blood Performing Organization Address [facility] Phone Number MISYS [facility] MAIN-STATION 1 * OCCULT BLOOD ICT (07/13/2018 2:19 PM BELT GLASS SANDER) [facility] Occult Blood Negative NEG [facility] ICT Specimen Stool Performing Organization Address [facility] Phone Number [facility] * ELECTROLYTES (06/12/2018 8:15 AM CDT) Pathologist [facility] Sodium 139 136 - 145 mmol/L MAIN-STATION 1 Potassium 4.4 3.5 - 5.1 mmol/L BT MAIN-STATION 1 Chloride 103 98 - 107 mmol/L BT MAIN-STATION 1 CO2 29 21 - 31 mmol/L BT MAIN-STATION 1 Anion Gap 7 MAIN-STATION 1 Specimen Blood Performing Organization Address [facility] Phone Number MISYS MAIN-STATION 1 * LIPID PROFILE (06/12/2018 8:15 AM CDT) Pathologist [facility] Cholesterol 181 mg/dL BT MAIN-STATION Comment: 1 REFERENCE RANGE: Desirable: <200 mg/dL Borderline: 200-240 mg/dL High Risk: >240 mg/dL Triglyceride 54 <150 mg/dL BT MAIN-STATION Comment: 1 REFERENCE RANGE: Normal: <150 mg/dL Borderline High: 150-199 mg/dL High: 200-499 mg/dL Very High: >vt=614 mg/dL HDL 58 mg/dL BT MAIN-STATION Comment: 1 Increased CHD risk: <40 mg/dL Decreased CHD risk: >60 mg/dL LDL 112 mg/dL BT MAIN-STATION Comment: 1 REFERENCE RANGE: Optimal: <100 mg/dL Near Optimal: 100-129 mg/dL Borderline High: 130-159 mg/dL High: 160-189 mg/dL Very High: >pf=933 mg/dL Specimen Blood Performing Organization Address [facility] Phone Number MISYS BT MAIN-STATION 1 * GLUCOSE (06/12/2018 8:15 AM CDT) Glucose 125 (H) 70 - 110 mg/dL BT MAIN-STATION 1 Specimen Blood Performing Organization Address [facility] Phone Number MISYS BT MAIN-STATION 1 * UREA NITROGEN/CREA (06/12/2018 8:15 AM CDT) Urea Nitrogen 16 7 - 25 mg/dL BT MAIN-STATION 1 Creatinine 0.70 0.6 - 1.2 mg/dL BT MAIN-STATION 1 GFR, Estimated >60 mL/min/1.73 m2 BT MAIN-STATION 1 GFR, Estim, >60 mL/min/1.73 m2 BT MAIN-STATION Afr-Am 1 Specimen Other (Specify in Comments) Performing Organization Address [facility] Phone Number MISYS BT MAIN-STATION 1 * MICROALBUM, URINE (04/12/2018 10:55 AM CDT) Microalbum, 2.1 0.0 - 29.0 mg/dL BT MAIN-STATION Random 1 Creatinine, Ur 82.4 20 - 320 mg/dL BT MAIN-STATION 1 Urine 25.5 0 - 29 mg/g UCR BT MAIN-STATION Microalbumin Comment: 1 To minimize intra-individual variation, analysis of three random urine samples collected over the course of a week is recommended. Performing Organization Address [facility] Phone Number MISYS BT MAIN-STATION 1 * DIABETIC FOOT EXAM (04/12/2018 10:50 AM CDT) Narrative Performed At Yoshi Ortiz III, MD 04/12/20181:22 PM Diabetic Foot Exam was performed at 04/12/2018 10:58 AM.Right foot sensation is reduced, right foot pulses are normal, right foot appearance is normal.Left foot sensation is reduced,left foot pulses are normal, left foot appearance is normal. after 10/25/2017 Insurance Type Payer Benefit Subscriber ID Effective Phone Address Plan / Dates Group MEDICARE MEDICARE xxxxxxxxxxx 2018-P [phone] [id number] [place] [address] [facility] CIGNA xxxxxxxx 2018-0 [address] [facility] [place] [address] [place] MED[place] [id number] xxxxxxxxx 2018- [phone] QUALIFIED Present [id number] MEDICARE [place], [place] [address] Y HCHD PLAN HCHD PLAN xxxxxxx 2018- [phone] [id number] [address] [address] [place] [address] Advance Directives For more information, please contact: [address] [address] Date Inactivated Comments Code Status Date Activated 10/23/2018 4:51 PM Full Code 10/19/2018 10:16 PM 10/19/2018 10:16 PM Full Code 10/19/2018 8:21 PM
--- OUTSIDE RECORDS SUMMARY | 2018-12-21 09:07 | XMS REPORT ---
Author Author Liban Gale Organization [employer] Address Unknown Phone Unavailable Care Team Providers Care Place Change Roof Bolter Name Role Phone Liban Gale Unavailable Encounters Encounter Location Date pain [facility] December 12, [address] [facility] December 19, [address] 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
--- OUTSIDE RECORDS SUMMARY | 2018-12-21 09:07 | XMS REPORT ---
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 . Answer: No December 10, 2013 Use of recreational / street drugs? . Answer: No December 10, 2013 Tobacco Use: . Are you a:: former smoker , How long has it been since you last smoked?: > 10 years December 10, 2013 Marital Status: . December 10, 2013 Do you exercise? . Answer: No December 10, 2013 Do you drink alcohol? . 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
--- OUTSIDE RECORDS SUMMARY | 2018-12-21 09:07 | XMS REPORT ---
Author Author Liban Gale Organization [employer] Address Unknown Phone Unavailable Care Team Providers Care Contract Design Agent Name Role Phone Liban Gale Unavailable Encounters Encounter Location Date Unknown [facility] Jun 06, 2014 Unknown [facility] Jun 25, 2014 Other [facility] May 19, 2014 pain [facility] December 12, 2013 Refill [facility] December 19, 2013 Unknown [facility] March 25, 2014 Problems [...] Status: No January 21, 2014 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
--- OUTSIDE RECORDS SUMMARY | 2018-12-21 09:08 | XMS REPORT ---
Author Author [facility] Address Unknown Phone Unavailable Care Team Providers Care Air Pumper Name Role Phone Yasmeen ARCHULETA Unavailable Unavailable Problems This patient has no known problems. Allergies, Adverse Reactions, Alerts This patient has no known allergies or adverse reactions. Medications This patient has no known medications. Encounters Start Date/Time End Date/Time Encounter Type Admission Type Attending [facility] Facility Care Department Encounter ID 2019-01-23 00:00:00 2019-01-23 00:00:00 Outpatient [facility] [id number] 2018-12-18 17:43:37 2018-12-18 17:43:37 Outpatient [facility] [id number] 2018-12-18 11:13:00 2018-12-18 11:13:00 Outpatient [facility] [id number] 2018-12-18 00:00:00 2018-12-18 00:00:00 Outpatient [facility] [id number] 2018-12-17 00:00:00 2018-12-17 00:00:00 Outpatient [facility] [id number] 2018-12-06 15:15:45 2018-12-06 15:15:45 Outpatient [facility] [id number] 2018-12-06 12:01:43 2018-12-06 12:01:43 Outpatient [facility] [id number] 2018-12-05 09:29:01 2018-12-05 09:29:01 Outpatient [facility] [id number] 2018-11-29 00:00:00 2018-11-29 00:00:00 Outpatient [facility] [id number] 2018-11-15 09:35:29 2018-11-15 09:35:29 Outpatient [facility] [id number] 2018-11-15 00:00:00 2018-11-15 00:00:00 Outpatient [facility] [id number] 2018-11-05 00:00:00 2018-11-05 00:00:00 Outpatient [facility] [id number] 2018-10-22 14:09:58 2018-10-22 14:09:58 Outpatient [facility] [id number] 2018-10-22 06:44:24 2018-10-22 06:44:24 Outpatient [facility] [id number] 2018-10-22 00:00:00 2018-10-22 00:00:00 Outpatient [facility] [id number] 2018-10-22 00:00:00 2018-10-22 00:00:00 Outpatient [facility] [id number] 2018-10-20 05:39:57 2018-10-20 05:39:57 Outpatient [facility] [id number] 2018-10-19 12:29:29 2018-10-19 12:29:29 Emergency [facility] [id number] 2018-10-19 11:56:28 2018-10-19 11:56:28 Outpatient [facility] [id number] 2018-07-16 00:00:00 2018-07-16 00:00:00 Outpatient [facility] [id number] 2018-07-13 14:24:33 2018-07-13 14:24:33 Outpatient [facility] [id number] 2018-06-18 09:02:54 2018-06-18 09:02:54 Outpatient [facility] [id number] 2018-06-12 08:19:08 2018-06-12 08:19:08 Outpatient [facility] [id number] 2018-05-24 00:00:00 2018-05-24 00:00:00 Outpatient [facility] [id number] 2018-04-12 10:12:21 2018-04-12 10:12:21 Outpatient [facility] [id number] 2018-04-09 02:13:14 2018-04-09 02:13:14 Emergency [facility] [id number] 2018-01-10 00:00:00 2018-01-10 00:00:00 Outpatient [facility] [id number] 2018-01-10 00:00:00 2018-01-10 00:00:00 Outpatient [facility] [id number] 2017-10-19 00:00:00 2017-10-19 00:00:00 Outpatient [facility] [id number] 2017-10-18 14:56:49 2017-10-18 14:56:49 Outpatient [facility] [id number] 2017-10-16 00:00:00 2017-10-16 00:00:00 Outpatient [facility] [id number] 2017-10-16 00:00:00 2017-10-16 00:00:00 Outpatient [facility] [id number] 2017-10-16 00:00:00 2017-10-16 00:00:00 Outpatient [facility] [id number] 2017-10-03 09:54:54 2017-10-03 09:54:54 Outpatient [facility] [id number] 2017-07-18 07:49:41 2017-07-18 07:49:41 Outpatient [facility] [id number] 2017-07-13 10:51:04 2017-07-13 10:51:04 Outpatient [facility] [id number] 2017-07-13 10:37:26 2017-07-13 10:37:26 Outpatient [facility] [id number] 2017-07-13 09:02:38 2017-07-13 09:02:38 Outpatient [facility] [id number] 2017-07-05 08:13:20 2017-07-05 08:13:20 Outpatient [facility] [id number] 2017-07-04 00:00:00 2017-07-04 00:00:00 Outpatient [facility] [id number] 2017-06-28 14:17:09 2017-06-28 14:17:09 Outpatient [facility] [id number] 2017-06-28 00:00:00 2017-06-28 00:00:00 Outpatient [facility] [id number] 2017-06-22 00:00:00 2017-06-22 00:00:00 Outpatient [facility] [id number] 2017-06-15 07:58:35 2017-06-15 07:58:35 Outpatient [facility] [id number] 2017-06-09 13:55:12 2017-06-09 13:55:12 Outpatient [facility] [id number] 2017-06-01 10:31:29 2017-06-01 10:31:29 Outpatient [facility] [id number] 2017-06-01 09:42:47 2017-06-01 09:42:47 Outpatient [facility] [id number] 2017-06-01 00:00:00 2017-06-01 00:00:00 Outpatient [facility] [id number] 2017-05-17 14:29:10 2017-05-17 14:29:10 Outpatient [facility] [id number] 2017-05-02 00:00:00 2017-05-02 00:00:00 Outpatient [facility] [id number] 2017-05-02 00:00:00 2017-05-02 00:00:00 Outpatient [facility] [id number] 2017-05-02 00:00:00 2017-05-02 00:00:00 Outpatient [facility] [id number] 2017-04-28 00:00:00 2017-04-28 00:00:00 Outpatient [facility] [id number] 2017-04-28 00:00:00 2017-04-28 00:00:00 Outpatient [facility] [id number] 2017-04-24 15:47:31 2017-04-24 15:47:31 Outpatient [facility] [id number] 2017-04-06 00:00:00 2017-04-06 00:00:00 Outpatient [facility] [id number] 2017-04-06 00:00:00 2017-04-06 00:00:00 Outpatient [facility] [id number] 2017-03-16 14:24:35 2017-03-16 14:24:35 Outpatient [facility] [id number] 2017-03-16 13:22:03 2017-03-16 13:22:03 Outpatient [facility] [id number] 2017-02-22 00:00:00 2017-02-22 00:00:00 Outpatient [facility] [id number] Results Test Description Test Time Test Comments Text Results Atomic Results Result Comments CHEST SINGLE (PORTABLE) 2018-08-05 14:25:00 [place] [address] Patient Name: PORTER BUCK V MR #: [id number] : 1960 Age/Sex: 58/F Req #: [id number] Adm Physician: Ordered by: VIRGIE ABRAMS INTERPRETER Report #: [id number] Location: ER Room/Bed: Procedure: [id number] DX/CHEST SINGLE (PORTABLE) Exam Date: 08/05/18 Exam Time: 1410 REPORT STATUS: Signed EXAMINATION: CHEST SINGLE (PORTABLE) IND ICATION: Chest pain. COMPARISON: 04/19/2010. FINDINGS: TUBES and LINES: None. LUNGS: Lungs are well inflated. Lungs are clear. There is no evidence of pneumonia or pulmonary edema. PLEURA: No pleural effusion or pneumothorax. HEART AND MEDIASTINUM: The cardiomediastinal silhouette is unremarkable. BONES AND SOFT TISSUES: No acute osseous lesion. Soft tissues are unremarkable. UPPER ABDOMEN: No free air under the diaphragm. IMPRESSION: No acute thoracic abnormality. Signed by: Dr. Lashonda Michel M.D. on 08/05/2018 2:26 PM Dictated By: DOMENIC MICHEL MD, MD [id number] Transcribed By: KAISER on 08/05/18 1426 COPY TO: VIRGIE ABRAMS NP
--- OUTSIDE RECORDS SUMMARY | 2018-12-21 09:08 | XMS REPORT | Clinical Summary ---
Author Author [facility] Organization [facility] Address Unknown Phone Unavailable Care Team Providers Care Telephone Appointment Clerk Name Role Phone Grace Mitchell PCP Allergies [...] blood glucose test Check blood 50 Each stripsIndications: glucose 3 6 Uncontrolled type 2 [...] (ZYPREXA) 5 mg Take 1 tablet 0 tablet by mouth at 8 bedtime nightly. [...] extended release by mouth tablet daily. Active tamsulosin (FLOMAX) 0.4 Take 1 30 capsule 3 mg extended release capsule by 9 capsuleIndications: mouth daily. Nephrolithiasis Active traMADol (ULTRAM) 50 mg Take 1 tablet 30 tablet 0 tabletIndications: by mouth 9 Nephrolithiasis, every 6 hours Displacement of ureteral as needed for stent, initial encounter, Pain. Pain Active hyoscyamine (LEVSIN/SL) Place 1 30 tablet 0 0.125 mg sublingual tablet under 9 tabletIndications: tongue every Nephrolithiasis, Bladder 4 hours as spasms needed (bladder spasms). 12/20/2018 Active nitrofurantoin Take 1 40 capsule 0 (MACRODANTIN) 100 mg capsule by 9 capsuleIndications: mouth 4 times Urinary tract infection daily for 10 without hematuria, site days. unspecified 05/24/2018 Discontinued dicyclomine (BENTYL) 10 Take 1 [...] complication, without long-term current use of insulin 11/15/2018 Discontinued hyoscyamine (LEVSIN/SL) Place 1 30 tablet 0 0.125 mg sublingual tablet under 9 tabletIndications: tongue every Nephrolithiasis, Bladder 4 hours as spasms needed (bladder spasms). Active Problems Problem Noted Date Kidney stone 10/19/2018 Nephrolithiasis 10/19/2018 Overview: Added automatically from request for surgery [id number] Bipolar 1 disorder 06/18/2018 Schizophrenia 06/18/2018 Irritable bowel syndrome with diarrhea 04/07/2016 Anxiety 04/07/2016 Essential hypertension, benign Hepatitis C Proteinuria Pure hypercholesterolemia Uncontrolled type 2 diabetes mellitus with kidney complication, without long-term current use of insulin Left lower quadrant pain Thrombocytopenia Left flank pain S/P ureteral stent placement Encounters Care Team Description Date Type Specialty Gracie Castro ResidentMD Other (picking tech abx) 12/10/2018 Telephone Urology Gracie Castro ResidentMD 12/10/2018 Orders Only Urology Grace Mitchell DO 12/06/2018 Hospital Lab Encounter Grace Mitchell DO Nephrolithiasis 12/06/2018 Hospital Lab Encounter Sanaz Lipscomb MD Urinary tract infection without hematuria, site unspecified (Primary Dx) 12/06/2018 Orders Only Urology 12/06/2018 Travel Kiki Minor NP 12/05/2018 Anesthesia General Surgery Event Kiki Minor NP 12/05/2018 Hospital Anesthesiology Encounter 12/05/2018 Travel Sanaz Lipscomb MD Acute cystitis without hematuria (Primary Dx) 11/26/2018 Orders Only Urology Vidya Escalante MD McCarty, Melina J, MD Nephrolithiasis; Bladder spasms 11/15/2018 Office Visit Urology Siobhan Daly 10/22/2018 Anesthesia Event [place] Waldron [...] symptoms due to menopause 06/18/2018 Office Visit Family Practice Grace Mitchell DO Type 2 diabetes mellitus without complication, without long-term current use of insulin 06/18/2018 Orders Only [facility] Yoshi Ortiz III, MD Irritable bowel syndrome with diarrhea 05/24/2018 Refill [facility] Yoshi Ortiz III, MD Essential hypertension, benign (Primary Dx); Type 2 diabetes mellitus without complication, without long-term current use of insulin; Immunization due 04/12/2018 Office Visit Family Practice Pérez Paulino MD Anxiety (Primary Dx) 04/09/2018 Emergency Emergency Medicine after 12/11/2017 Immunizations Name Dates Previously Given Next Due [...] Used Former Smoker Smokeless Tobacco: Never Used Tobacco Cessation: Counseling Given: No Comments: quit 17 years ago Alcohol Use Drinks/Week oz/Week Comments No Sex Assigned at Date Recorded Not on file Industry Job Start Date Occupation Not on file Not on file Not on file Travel End Travel History Travel Start No recent travel history available. Last Filed Vital Signs Time Taken Vital Sign Reading 12/05/2018 9:34 AM CDT Blood Pressure 121/76 12/05/2018 9:34 AM CDT Pulse 106 12/05/2018 9:34 AM CDT Temperature 36.6 C (97.9 F) 12/05/2018 9:34 AM CDT Respiratory Rate 18 12/05/2018 9:34 AM CDT Oxygen Saturation 99% - Inhaled Oxygen - Concentration 12/05/2018 9:34 AM CDT Weight 64.7 kg (142 lb 11.2 oz) 12/05/2018 9:34 AM CDT Height 162.6 cm (5' 4") 12/05/2018 9:34 AM CDT Body Mass Index 24.49 Plan of Treatment Care Team Description Date Type Specialty Wendy Loco MD [phone] 12/19/2018 Hospital Encounter Health Maintenance Due Date Last Done Comments [...] Lot Implanted Type Area Manufactur er 02/25/2021 [id number] / / [id number] Stent Ureteral 6fr 24cm Ascerta Stent Left: Ureter(s) [employer] - [id number] cturer Implanted: Qty: 1 on 10/22/2018 by Rohith Boyle ResidentMD Procedures Comments Procedure Name Priority Date/Time Associated Diagnosis URINE CULTURE Routine 12/06/2018 Urinary tract infection 1:46 PM CDT without hematuria, site unspecified UA MICROSCOPIC Routine 12/06/2018 11:58 AM CDT UA CHEMISTRIES Routine 12/06/2018 Acute cystitis without 11:58 AM CDT hematuria BMP POC Routine 12/05/2018 9:56 AM CDT 12 LEAD EKG STAT 12/05/2018 9:47 AM CDT PT/INR STAT 12/05/2018 9:46 AM CDT CBC/DIFF STAT 12/05/2018 9:46 AM CDT GLUCOSE POC Routine 10/23/2018 11:26 AM GOVERNMENT EMPLOYEE GLUCOSE POC Routine 10/23/2018 6:46 AM GOVERNMENT EMPLOYEE MAGNESIUM Routine 10/23/2018 5:20 AM GOVERNMENT EMPLOYEE PHOSPHORUS Routine 10/23/2018 5:20 AM GOVERNMENT EMPLOYEE BASIC METABOLIC PANEL Routine 10/23/2018 5:20 AM GOVERNMENT EMPLOYEE CBC/DIFF Routine 10/23/2018 5:20 AM GOVERNMENT EMPLOYEE GLUCOSE POC Routine 10/22/2018 8:34 PM GOVERNMENT EMPLOYEE GLUCOSE POC Routine 10/22/2018 4:26 PM GOVERNMENT EMPLOYEE GLUCOSE POC Routine 10/22/2018 2:46 PM GOVERNMENT EMPLOYEE [id number] Routine 10/22/2018 1:59 PM GOVERNMENT EMPLOYEE Procedure Note - Siobhan Daly - 10/22/2018 1:59 PM GOVERNMENT EMPLOYEE Intubation Date/Time: 10/22/2018 1:33 PM Urgency: elective [...] UROL - CYSTOSCOPY 10/22/2018 Nephrolithiasis 11:35 AM G[employer]ERNMENT EMPLOYEE GLUCOSE POC Routine 10/22/2018 10:51 AM GOVERNMENT EMPLOYEE U/S ABDOMEN LIMITED Routine 10/22/2018 Thrombocytopenia 9:45 AM GOVERNMENT EMPLOYEE GLUCOSE POC Routine 10/22/2018 6:59 AM GOVERNMENT EMPLOYEE IRON PROFILE Routine 10/22/2018 4:40 AM GOVERNMENT EMPLOYEE FERRITIN Routine 10/22/2018 4:40 AM GOVERNMENT EMPLOYEE VITAMIN B12 Routine 10/22/2018 4:40 AM GOVERNMENT EMPLOYEE LIVER PROFILE Routine 10/22/2018 4:40 AM GOVERNMENT EMPLOYEE PHOSPHORUS Routine 10/22/2018 4:40 AM GOVERNMENT EMPLOYEE MAGNESIUM Routine 10/22/2018 4:40 AM GOVERNMENT EMPLOYEE CBC/DIFF Routine 10/22/2018 4:40 AM GOVERNMENT EMPLOYEE BASIC METABOLIC PANEL Routine 10/22/2018 4:40 AM GOVERNMENT EMPLOYEE HCV RNA QUANT, PCR Routine 10/22/2018 4:40 AM GOVERNMENT EMPLOYEE GLUCOSE POC Routine 10/21/2018 8:54 PM GOVERNMENT EMPLOYEE GLUCOSE POC Routine 10/21/2018 4:42 PM GOVERNMENT EMPLOYEE GLUCOSE POC Routine 10/21/2018 4:10 PM GOVERNMENT EMPLOYEE GLUCOSE POC Routine 10/21/2018 11:15 AM GOVERNMENT EMPLOYEE CITRATED PLATELET Routine 10/21/2018 10:48 AM GOVERNMENT EMPLOYEE HIV-1/HIV-2 ROUTINE Routine 10/21/2018 SCREENING 10:48 AM GOVERNMENT EMPLOYEE VITAMIN B12 Routine 10/21/2018 10:48 AM GOVERNMENT EMPLOYEE FERRITIN Routine 10/21/2018 10:48 AM GOVERNMENT EMPLOYEE IRON PROFILE Routine 10/21/2018 10:48 AM GOVERNMENT EMPLOYEE CBC/DIFF Routine 10/21/2018 10:48 AM GOVERNMENT EMPLOYEE PHOSPHORUS Routine 10/21/2018 8:56 AM GOVERNMENT EMPLOYEE MAGNESIUM Routine 10/21/2018 8:56 AM GOVERNMENT EMPLOYEE BASIC METABOLIC PANEL Routine 10/21/2018 8:56 AM GOVERNMENT EMPLOYEE CBC/DIFF Routine 10/21/2018 8:56 AM GOVERNMENT EMPLOYEE GLUCOSE POC Routine 10/21/2018 6:55 AM GOVERNMENT EMPLOYEE GLUCOSE POC Routine 10/20/2018 9:06 PM GOVERNMENT EMPLOYEE GLUCOSE POC Routine 10/20/2018 4:41 PM GOVERNMENT EMPLOYEE GLUCOSE POC Routine 10/20/2018 11:19 AM GOVERNMENT EMPLOYEE GLUCOSE POC Routine 10/20/2018 7:12 AM GOVERNMENT EMPLOYEE DUPLEX DOPPLER UPPER STAT 10/20/2018 EXTREMITY VENOUS, 6:20 AM GOVERNMENT EMPLOYEE UNILATERAL OR LIMITED SEQUENTIAL COMPRESSION Routine 10/20/2018 PUMP 4:59 AM GOVERNMENT EMPLOYEE HEMOGLOBIN A1C Routine 10/20/2018 4:00 AM GOVERNMENT EMPLOYEE PHOSPHORUS Routine 10/20/2018 4:00 AM GOVERNMENT EMPLOYEE MAGNESIUM Routine 10/20/2018 4:00 AM GOVERNMENT EMPLOYEE BASIC METABOLIC PANEL Routine 10/20/2018 4:00 AM GOVERNMENT EMPLOYEE CBC/DIFF Routine 10/20/2018 4:00 AM GOVERNMENT EMPLOYEE URINE DRUG SCREEN Routine 10/20/2018 4:00 AM GOVERNMENT EMPLOYEE SEQUENTIAL COMPRESSION Routine 10/19/2018 PUMP 10:15 PM GOVERNMENT EMPLOYEE GLUCOSE POC Routine 10/19/2018 9:20 PM GOVERNMENT EMPLOYEE ABG POC Routine 10/19/2018 8:00 PM GOVERNMENT EMPLOYEE URINE CULTURE Routine 10/19/2018 3:00 PM GOVERNMENT EMPLOYEE UA CHEMISTRIES STAT 10/19/2018 3:[address] ABDOMEN AND PELVIS STAT 10/19/2018 Left lower quadrant pain CONTRAST 2:28 PM GOVERNMENT EMPLOYEE 12 LEAD EKG Routine 10/19/2018 12:08 PM GOVERNMENT EMPLOYEE BMP POC Routine 10/19/2018 12:05 PM GOVERNMENT EMPLOYEE VBG POC Routine 10/19/2018 12:05 PM GOVERNMENT EMPLOYEE TROPONIN I POC Routine 10/19/2018 12:03 PM GOVERNMENT EMPLOYEE LIPASE STAT 10/19/2018 11:58 AM GOVERNMENT EMPLOYEE LIVER PROFILE STAT 10/19/2018 11:58 AM GOVERNMENT EMPLOYEE CBC/DIFF STAT 10/19/2018 11:58 AM GOVERNMENT EMPLOYEE OCCULT BLOOD ICT Routine 07/13/2018 Preventative health care 2:19 PM GOVERNMENT EMPLOYEE HIV-1/HIV-2 ROUTINE Routine 06/12/2018 Type 2 diabetes [...] CHEMISTRIES STAT 04/09/2018 4:40 AM CDT after 12/11/2017 Results * URINE CULTURE (12/06/2018 1:46 PM CDT) Only the most recent of 2 results within the time period is included. Spec Clean catch urine [facility] Description MICROBIOLOGY Order Comments None [facility] MICROBIOLOGY Culture Resembles mixed uro-genital BT MICROBIOLOGY terry Report Status Final 12/09/2018 [facility] MICROBIOLOGY Specimen Urine clean catch - CLEAN CATCH URINE Performing Organization Address City/State/Zipcode Phone Number MISYS [facility] MICROBIOLOGY BT MICROBIOLOGY * UA CHEMISTRIES (12/06/2018 11:58 AM CDT) Only the most recent of 3 results within the time period is included. Color Yellow [facility]-STATION 1 Clarity Clear [facility] 1 Spec [place] 1.015 1.001 - 1.035 [facility] 1 pH 6.5 5 - 8 [facility] 1 Protein Trace (A) NEG [facility]-STATION 1 Glucose Negative NEG [facility]-ST[facility] 1 Ketone Negative NEG [facility]ST[facility] 1 Bilirubin Negative NEG [facility] 1 Nitrate Negative NEG [facility]STATION 1 Urobilinogen 0.2 0.2 - 1.0 EU/dL [facility] 1 Leukocyte 1+ (A) NEG [facility] 1 Blood 2+ (A) NEG [facility] 1 RBC 23 (H) 0 - 4 /HPF [facility] 2 WBC 24 (H) 0 - 5 /HPF [facility] 2 Epithelial Cell 1 /HPF [facility]ST[facility] 2 Mucous Present LB MAIN-STATION 2 Specimen Urine Performing Organization Address City/[facility]/Zipcode Phone Number MISYS [facility] MAIN-STATION 1 [facility] MAIN-STATION 2 * BMP POC (12/05/2018 9:56 AM CDT) Only the most recent of 3 results within the time period is included. CO2 POC 25Comment: Physician Notified 21 - 32 mmol/L [facility] MAIN-STATION 1 Chloride POC 97 (L) 98 - 107 mmol/L [facility] MAIN-STATION 1 Potassium POC 3.5 3.50 - 5.10 mmol/L [facility] MAIN-STATION 1 Sodium POC 137 136 - 145 mmol/L [facility] MAIN-STATION 1 Glucose POC 260 (H) 74 - 106 mg/dL [facility] MAIN-STATION 1 Urea Nitrogen 18 7 - 18 mg/dL [facility] MAIN-STATION 1 Creatinine POC 0.7 0.6 - 1.3 mg/dL [facility] MAIN-STATION 1 Calcium Ionized 1.11 (L) 1.15 - 1.29 mmol/L [facility] POC MAIN-STATION 1 Hemoglobin POC 13.6 12.0 - 16.0 g/dL [facility] MAIN-STATION 1 Hematocrit POC 40.0 37.0 - 47.0 % [facility] MAIN-STATION 1 GFR, Estimated >60 mL/min/1.73 m2 [facility] MAIN-STATION 1 GFR, Estim, >60 mL/min/1.73 m2 [facility] Afr-Am MAIN-STATION 1 Performing Organization Address [facility] Phone Number GIDEONYS [facility] MAIN-STATION 1 * 12 LEAD EKG (12/05/2018 9:47 AM CDT) 12 LEAD EKG FOR [facility] Test Date:2018-12-05 Pat Name: NADIA BUCK Department: [id number] Room: Gender: F Digital Associate: :[id number] 02-12 Requested By: KIKI Hart Order Number: [id number] Reading MD: Stephen GUZMÁN Measurements Intervals Steele Rate: 104 P: 9 IA: 140 QRS: 53 QRSD: 85 T:9 QT: 338 QTc:446 Interpretive Statements SINUS TACHYCARDIA NONSPECIFIC ST & T-WAVE ABNORMALITY ABNORMAL ECG Electronically Signed On 12-05-2018 10:33:27 CDT by Stephen GUZMÁN Performing Organization Address City/State/Zipcode Phone Number SMS * PT/INR (12/05/2018 9:46 AM CDT) PT 13.2 11.8 - 15.0 Seconds [facility] 4 INR 1.0 LB SUGGESTED THERAPEUTIC RANGES: MAIN-STATION 4 INR 2.0-3.0 for MODERATE INTENSITY ANTICOAGULATION INR 2.5-3.5 for HIGH INTENSITY ANTICOAGULATION Specimen Blood Performing Organization Address City/[facility] Phone Number MISYS [facility] MAIN-STATION 4 * CBC/DIFF (12/05/2018 9:46 AM CDT) Only the most recent of 8 results within the time period is included. WBC 5.4 4.5 - 11.0 K/uL [facility]ST[facility] 2 RBC 4.83 4.20 - 5.40 M/uL LB MAIN-STATION 2 Hemoglobin 13.7 12.0 - 16.0 g/dL [facility] 2 Hematocrit 41.5 37.0 - 47.0 % [facility] 2 MCV 86 82 - 92 fL [facility] 2 MCH 28.4 27.0 - 32.0 pg [facility] 2 MCHC 33.0 32.0 - 36.0 g/dL [facility] 2 RDW 38.6 36.4 - 46.3 fL [facility] 2 Platelet 137 (L) 150 - 400 K/uL [facility] 2 Mean Platelet 10.4 9.4 - 12.4 fL [facility] Volume [facility]IN[facility]STATION 2 Percent NRBC 0.0 [facility] 2 Absolute NRBC 0.00 [facility] 2 Neutrophil 61.0 34.0 - 70.0 % [facility] 2 Lymphocyte 27.9 20.0 - 50.0 % [facility] 2 Monocyte 7.7 5.0 - 12.0 % [facility] 2 Eosinophil 2.6 0.7 - 5.0 % [facility] 2 Basophil 0.6 0.1 - 1.2 % [facility] 2 Pct Immat Gran 0.2 0.0 - 0.5 [facility] 2 Neutrophil, Abs 3.32 1.56 - 6.13 K/uL [facility] 2 Lymphocyte, Abs 1.52 1.18 - 3.74 K/uL [facility] 2 Monocyte, Abs 0.42 (H) 0.24 - 0.36 K/uL [facility]ST[facility] 2 Eosinophil, Abs 0.14 0.04 - 0.36 K/uL [facility]IN[facility]STATION 2 Basophil, Abs 0.03 0.01 - 0.08 K/uL [facility] MAIN-STATION 2 Absol Immat 0.01 0.00 - 0.03 K/uL LB [facility] MAIN-STATION 2 Specimen Blood Performing Organization Address [facility] Phone Number [facility] MAIN-STATION 2 * GLUCOSE POC (10/23/2018 11:26 AM GOVERNMENT EMPLOYEE) Only the most recent of 17 results within the time period is included. Glucose POC 129 (H) 74 - 106 mg/dL [facility] MAIN-STATION 1 Performing Organization Address [facility] Phone Number [facility] MAIN-STATION 1 * PHOSPHORUS (10/23/2018 5:20 AM GOVERNMENT EMPLOYEE) Only the most recent of 4 results within the time period is included. Phosphorus 3.5 2.5 - 5.0 mg/dL [facility] MAIN-STATION 1 Specimen Blood Performing Organization Address [facility] Phone Number [facility] MAIN-STATION 1 * MAGNESIUM (10/23/2018 5:20 AM GOVERNMENT EMPLOYEE) Only the most recent of 4 results within the time period is included. Magnesium 2.1 1.9 - 2.7 mg/dL [facility] MAIN-STATION 1 Specimen Blood Performing Organization Address [facility] Phone Number [facility] MAIN-STATION 1 * BASIC METABOLIC PANEL (10/23/2018 5:20 AM GOVERNMENT EMPLOYEE) Only the most recent of 4 results within the time period is included. CO2 29 21 - 31 mmol/L [facility] MAIN-STATION 1 Chloride 105 98 - 107 mmol/L [facility] MAIN-STATION 1 Potassium 3.7 3.5 - 5.1 mmol/L [facility] MAIN-STATION 1 Sodium 142 136 - 145 mmol/L [facility] MAIN-STATION 1 Glucose 86 70 - 110 mg/dL [facility] MAIN-STATION 1 Urea Nitrogen 8 7 - 25 mg/dL [facility] MAIN-STATION 1 Creatinine 0.60 0.6 - 1.2 mg/dL [facility] MAIN-STATION 1 Anion Gap 8 [facility] MAIN-STATION 1 Calcium 8.0 (L) 8.6 - 10.3 mg/dL [facility] MAIN-STATION 1 GFR, Estimated >60 mL/min/1.73 m2 [facility] MAIN-STATION 1 GFR, Estim, >60 mL/min/1.73 m2 [facility] Afr-Am MAIN-STATION 1 Specimen Blood Performing Organization Address City/State/Zipcode Phone Number MISYS [facility] MAIN-STATION 1 * U/S ABDOMEN LIMITED (10/22/2018 9:45 AM GOVERNMENT EMPLOYEE) Impressions Performed At IMPRESSION: SMS 1.Spleen size is at the upper limits of normal. 2.Mild coarsened hepatic echotexture suggesting possible underlying hepatocellular disease. 3.Surgically absent gallbladder. This [facility] radiology report is a preliminary resident dictation until finalized by an attending.Changes to this preliminary report may occur in an additional preliminary or finalized version. Dictated By: Ricardo Rich MD, 10/22/2018 10:05 AM I have reviewed the study and agree with the findings in this report. Signed By: Lex Diamond MD, 10/22/2018 10:30 AM Narrative Performed At EXAM: US ABDOMEN LIMITED SMS DATE: 10/22/2018 6:44 AM INDICATION: Thrombocytopenia. Thrombocytopenia [...] Interface, Rad/Mammog In - 10/22/2018 10:54 AM GOVERNMENT EMPLOYEE EXAM: US ABDOMEN LIMITED DATE: 10/22/2018 6:44 [...] hepatocellular disease. 3. Surgically absent gallbladder. This [facility] radiology report is a preliminary resident dictation until finalized by an attending. Changes to this preliminary report may occur in an additional preliminary or finalized version. Dictated By: Ricardo Rich MD, 10/22/2018 10:05 AM I have reviewed the study and agree with the findings in this report. Signed By: Lex Diamond MD, 10/22/2018 10:30 AM Performing Organization Address City/State/Zipcode Phone Number SMS * HCV RNA QUANT, PCR (10/22/2018 4:40 AM GOVERNMENT EMPLOYEE) HCV RNA QUANT, Not detected IU/mL [facility] MOLECULAR PCR Comment: PATHOLOGY This test utilizes FDA cleared STEPHANIE AmpliPrep/STEPHANIE TaqMan HCV test, v2.0 from [employer] which allows detection of viral loads between [...] HCV infection. Specimen Blood Performing Organization Address City/[facility]/Zipcode Phone Number [facility]apine MOLECULAR PATHOLOGY * FERRITIN (10/22/2018 4:40 AM GOVERNMENT EMPLOYEE) Only the most recent of 2 results within the time period is included. Ferritin 24.00 11.0 - 306.8 ng/mL [facility] MAIN-STATION 1 Performing Organization Address [facility] Phone Number [facility] MAIN-STATION 1 * VITAMIN B12 (10/22/2018 4:40 AM GOVERNMENT EMPLOYEE) Only the most recent of 2 results within the time period is included. Vitamin B12 279 211 - 911 pg/mL MAIN-STATION 1 Performing Organization Address [facility] Phone Number [employer] MAIN-STATION 1 * LIVER PROFILE (10/22/2018 4:40 AM GOVERNMENT EMPLOYEE) Only the most recent of 2 results within the time period is included. T Protein 5.2 (L) 6.0 - 8.3 g/dL [facility] MAIN-STATION 1 Albumin 3.1 (L) 3.7 - 5.3 g/dL [facility] MAIN-STATION 1 T Bilirubin 0.6 0.2 - 1.2 mg/dL [facility] MAIN-STATION 1 Alk Phos 36 34 - 104 U/L [facility] MAIN-STATION 1 AST 14 13 - 39 U/L [facility] MAIN-STATION 1 ALT 9 7 - 52 U/L [facility] MAIN-STATION 1 D Bilirubin 0.2 0.0 - 0.2 mg/dL [facility] MAIN-STATION 1 Specimen Blood Performing Organization Address [facility] Phone Number datapine [facility] MAIN-STATION 1 * IRON PROFILE (10/22/2018 4:40 AM GOVERNMENT EMPLOYEE) Only the most recent of 2 results within the time period is included. Iron 58 50 - 212 ug/dL [facility] MAIN-STATION 1 TIBC 333 250 - 450 ug/dL [facility] MAIN-STATION 1 % Iron Sat 17 % BT MAIN-STATION 1 Performing Organization Address [facility] Phone Number MISYS [facility] MAIN-STATION 1 * CITRATED PLATELET (10/21/2018 10:48 AM GOVERNMENT EMPLOYEE) Citrated 79.2 [facility] Platelet MAIN-STATION 2 Performing Organization Address [facility] Phone Number MISYS LB MAIN-STATION 2 * HIV-1/HIV-2 ROUTINE SCREENING (10/21/2018 10:48 AM GOVERNMENT EMPLOYEE) Only the most recent of 2 results within the time period is included. HIV-1/HIV-2 Negative NEG [facility] BLOOD BANK Performing Organization Address [facility] Phone Number MISYS [facility] BLOOD B[facility] * DUPLEX DOPPLER UPPER EXTREMITY VENOUS, UNILATERAL OR LIMITED (10/20/2018 6:20 AM GOVERNMENT EMPLOYEE) Impressions Performed At IMPRESSION: SMS 1.No deep venous thrombosis (DVT) in the interrogated deep veins of the left upper extremity. 2.Mild left upper extremity edema without drainable collections. Signed By: Michoacano Betts MD, 10/20/2018 9:14 AM Narrative Performed At EXAM:DUPLEX DOPPLER UPPER EXTREMITY VENOUS, LEFT US [facility] DATE: 10/20/2018 6:20 AM INDICATION: r/o dvt COMPARISON: None available. TECHNIQUE: Grayscale real-time, color, and spectral Doppler imaging of the left upper extremity venous system was performed. FINDINGS: Left Upper Extremity Veins: Internal Jugular: Patent. Subclavian: Patent. Axillary: Patent. Brachial: Patent. Basilic: Patent. Cephalic: Compressible. Other: Mild left upper extremity edema. No drainable collections. Procedure Note Interface, Rad/Mammog In - 10/20/2018 9:20 AM GOVERNMENT EMPLOYEE EXAM: DUPLEX DOPPLER UPPER EXTREMITY VENOUS, LEFT [...] MD, 10/20/2018 9:14 AM Performing Organization Address City/State/[employer] Phone Number SMS * HEMOGLOBIN A1C (10/20/2018 4:00 AM GOVERNMENT EMPLOYEE) Only the most recent of 2 results within the time period is included. Hemoglobin A1c 5.4 4.3 - 6.1 % [facility] MAIN-STATION 1 Est Average 108.3 mg/dL [facility] Gluc MAIN-STATION 1 Specimen Blood Performing Organization Address [facility] Phone Number MISYS [facility] MAIN-STATION 1 * URINE DRUG SCREEN (10/20/2018 4:00 AM GOVERNMENT EMPLOYEE) Amphetamine Negative NEG [facility] Comment: MAIN-STATION 1 Calibrated Standard: D-Methamphetamine Positive if urine level >xn=1305 ng/mL Test performed on [id number] using [employer] Immunoassay Barbiturate Negative NEG [facility] Comment: MAIN-STATION 1 Calibrated Standard: Secobarbital Positive if urine level is >xq=860 ng/mL Test performed on [id number] using [employer] Immunoassay Benzodiazepine Negative NEG [facility] Comment: MAIN-STATION 1 Calibrated Standard: Lormethazepam Positive if urine level is >gm=536 ng/mL Test performed on [id number] using [employer] Immunoassay Cannabinoid Negative NEG [facility] Comment: MAIN-STATION 1 Calibrated Standard: 11 nor-delta(9)-THC carboxylic a Positive if urine level >or=50 Test performed on [id number] using EMIT Immunoassay Cocaine Negative NEG [facility] Comment: MAIN-STATION 1 Calibrated Standard: Benzoylecgonine Positive if urine level >bu=832 Test performed on [id number] using EMIT Immunoassay Opiate, Ur Positive (A) [facility]G [facility] Comment: MAIN-STATION 1 Calibrated Standard: Morphine Positive if urine level >ya=420 Test performed on [id number] using EMIT Immunoassay PCP Negative NEG [facility] Comment: MAIN-STATION 1 Calibrated Standard: Phencyclidine Positive if urine level >or=25 Test performed on [id number] using EMIT Immunoassay Urine Toxicology Screen results are to be used only for Medical purposes. Specimen Urine Performing Organization Address [facility]/[employer]/Zipcode Phone Number MISYS [facility] MAIN-STATION 1 * ABG POC (10/19/2018 8:00 PM GOVERNMENT EMPLOYEE) pH, Art POC 7.41Comment: Physician 7.35 - 7.45 [facility] Notified MAIN-STATION 1 pCO2,Art POC 39.1 32.0 - 45.0 mm Hg LB MAIN-STATION 1 pO2, Art POC 51 (L) 72 - 104 mm Hg LB MAIN-STATION 1 Base Excess, 0 mmol/L [facility] ART POC MAIN-STATION 1 HCO3, Art POC 25.0 22.0 - 26.0 mmol/L [facility] MAIN-STATION 1 % Sat, Art POC 86 (L) 95 - 99 % LB MAIN-STATION 1 Lactic Acid POC 2.71 (H) 0.4 - 2.0 mmol/L [facility] MAIN-STATION 1 Sample Type Art [facility] MAIN-STATION 1 TCO2, ART POC 26 21 - 32 mmol/L [facility] MAIN-STATION 1 Performing Organization Address City/State/Zipcode Phone Number MISYS [facility] MAIN-STATION 1 * CT ABDOMEN AND PELVIS CONTRAST (10/19/2018 2:28 PM GOVERNMENT EMPLOYEE) Impressions Performed At IMPRESSION: SMS 1. Left [...] Interface, Rad/Mammog In - 10/19/2018 2:55 PM GOVERNMENT EMPLOYEE EXAM: CT ABDOMEN AND PELVIS WITH CONTRAST [...] * 12 LEAD EKG (10/19/2018 12:08 PM GOVERNMENT EMPLOYEE) 12 LEAD EKG FOR [facility] Renaldo Fraire [facility] Test Date:2018-10-19 Pat Name: NADIA BUCK Department: [id number] Room: Gender: Digital Associate: :[id number] 02-12 Requested By: PÉREZ Hart Order Number: [id number] Reading MD: Randy Arteaga Measurements Intervals Steele Rate: 91 P:37 IA: 161 QRS: 66 QRSD: 84 T:69 QT: 385 QTc:476 Interpretive Statements SINUS RHYTHM WITH FREQUENT VENTRICULAR PREMATURE COMPLEXES Abnormal ECG Electronically Signed On 10-19-2018 14:00:24 GOVERNMENT EMPLOYEE by Randy Arteaga Performing Organization Address City/[facility] Phone Number SMS * VBG POC (10/19/2018 12:05 PM GOVERNMENT EMPLOYEE) pH, Taj POC 7.47 (H)Comment: Physician 7.33 - 7.43 [facility] Notified MAIN-STATION 1 pCO2, Taj POC 29.9 (L) 38.0 - 50.0 mm Hg [facility] MAIN-STATION 1 pO2, Taj POC 14 (L) 50 - 75 mm Hg [facility] MAIN-STATION 1 Base Deficit, 1 [facility] Taj POC MAIN-STATION 1 HCO3, Taj POC 21.8 (L) 22.0 - 26.0 mmol/L [facility] MAIN-STATION 1 % Sat, Taj POC 21 (L) 60 - 85 % [facility] MAIN-STATION 1 Lactic Acid, 4.74 (H) 0.4 - 2.0 mmol/L [facility] Taj POC MAIN-STATION 1 Sample Type Taj [facility] MAIN-STATION 1 TCO2, TAJ POC 23 21 - 32 mmol/L [facility] MAIN-STATION 1 Performing Organization Address [facility] Phone Number MISYS [facility] MAIN-STATION 1 * TROPONIN I POC (10/19/2018 12:03 PM GOVERNMENT EMPLOYEE) Troponin POC 0.01Comment: Physician 0.00 - 0.08 ng/mL [facility] Notified MAIN-STATION 1 Performing Organization Address [facility] Phone Number MISYS [facility] MAIN-STATION 1 * LIPASE (10/19/2018 11:58 AM GOVERNMENT EMPLOYEE) Lipase 32 11 - 81 U/L [facility] MAIN-STATION 1 Specimen Blood Performing Organization Address [facility] Phone Number MISYS [facility] MAIN-STATION 1 * OCCULT BLOOD ICT (07/13/2018 2:19 PM GOVERNMENT EMPLOYEE) Occult Blood Negative NEG [facility] ICT Specimen Stool Performing Organization Address [facility] Phone Number MILAN [facility] * ELECTROLYTES (06/12/2018 8:15 AM CDT) Sodium 139 136 - 145 mmol/L [facility] MAIN-STATION 1 Potassium 4.4 3.5 - 5.1 mmol/L [facility] MAIN-STATION 1 Chloride 103 98 - 107 mmol/L [facility] MAIN-STATION 1 CO2 29 21 - 31 mmol/L [facility] MAIN-STATION 1 Anion Gap 7 [facility] MAIN-STATION 1 Specimen Blood Performing Organization Address [facility] Phone Number MILAN [facility] MAIN-STATION 1 * LIPID PROFILE (06/12/2018 8:15 AM CDT) Cholesterol 181 mg/dL [facility] MAIN-STATION Comment: 1 REFERENCE RANGE: Desirable: <200 mg/dL Borderline: 200-240 mg/dL High Risk: >240 mg/dL Triglyceride 54 <150 mg/dL [facility] MAIN-STATION Comment: 1 REFERENCE RANGE: Normal: <150 mg/dL Borderline High: 150-199 mg/dL High: 200-499 mg/dL Very High: >wg=154 mg/dL HDL 58 mg/dL [facility] MAIN-STATION Comment: 1 Increased CHD risk: <40 mg/dL Decreased CHD risk: >60 mg/dL LDL 112 mg/dL [facility] MAIN-STATION Comment: 1 REFERENCE RANGE: Optimal: <100 mg/dL Near Optimal: 100-129 mg/dL Borderline High: 130-159 mg/dL High: 160-189 mg/dL Very High: >xv=497 mg/dL Specimen Blood Performing Organization Address [facility] Phone Number GIDEONYS [facility] MAIN-STATION 1 * GLUCOSE (06/12/2018 8:15 AM CDT) Glucose 125 (H) 70 - 110 mg/dL [facility] MAIN-STATION 1 Specimen Blood Performing Organization Address [facility] Phone Number GIDEONYS [facility] MAIN-STATION 1 * UREA NITROGEN/CREA (06/12/2018 8:15 AM CDT) Urea Nitrogen 16 7 - 25 mg/dL BT MAIN-STATION 1 Creatinine 0.70 0.6 - 1.2 mg/dL [facility] MAIN-STATION 1 GFR, Estimated >60 mL/min/1.73 m2 BT MAIN-STATION 1 GFR, Estim, >60 mL/min/1.73 m2 BT MAIN-STATION Afr-Am 1 Specimen Other (Specify in Comments) Performing Organization Address City/State/Zipcode Phone Number MISYS [facility] MAIN-STATION 1 * [...] a week is recommended. Performing Organization Address City/State/[facility] Phone Number MISYS [facility] MAIN-STATION 1 * DIABETIC FOOT EXAM (04/12/2018 10:50 AM CDT) Narrative Performed At Yoshi Ortiz III, MD 04/12/20181:22 PM Diabetic Foot Exam was performed at 04/12/2018 10:58 AM.Right foot sensation is reduced, right foot pulses are normal, right foot appearance is normal.Left foot sensation is reduced,left foot pulses are normal, left foot appearance is normal. after 12/11/2017 Insurance Type Payer Benefit Subscriber ID Effective Phone Address Plan / Dates Group [place] [employer] [place] x[place]xx 2018- [phone] [address] [employer] FAMILY Present [address] PLANN[place], [place] [address] [facility] [facility] [place] [employer] xxxxxxxx 2018-7 [address] [place] [address] [place] [id number] xxxxxxxxx 2018- [phone] QUALIFIED Present 2005 MEDICARE [place], [place] BENEF[place]IAR [id number] Y [employer] PLAN [employer] PLAN xxxxxxx 2018- [phone] [id number] [place] [address] Advance Directives For more information, please contact: [address] [address] Date Inactivated Comments Code Status Date Activated 10/23/2018 4:51 PM Full Code 10/19/2018 10:16 PM 10/19/2018 10:16 PM Full Code 10/19/2018 8:21 PM
--- OUTSIDE RECORDS SUMMARY | 2018-12-21 09:08 | XMS REPORT | Clinical Summary ---
Author Author [facility] Organization [facility] Address Unknown Phone Unavailable Care Team Providers Care Insurance Account Representative Name Role Phone Grace Mitchell PCP Allergies Comments Active Allergy Reactions Severity Noted Date heart stopped Methadone 03/29/2007 Enalapril Cough 03/29/2007 Losartan Cough 05/19/2016 heart stopped Benzodiazepines 03/29/2007 Medications End Date Status Medication Sig Dispensed Refills Start Date Suspended ASPIRIN 81 MG TAB 1 TABLET 0 DAILY Suspended ERGOCALCIFEROL, VITAMIN Take 1 0 D2, OR capsule by mouth weekly. 05/24/2018 Discontinued dicyclomine (BENTYL) 10 Take 1 90 capsule 1 mg capsuleIndications: capsule by 6 Irritable bowel syndrome mouth 3 times with diarrhea daily. Suspended gabapentin (NEURONTIN) Take 1 270 capsule 0 100 mg capsule by 6 capsuleIndications: mouth 3 times Uncontrolled type 2 daily. diabetes mellitus with peripheral neuropathy Suspended blood glucose test Check blood 50 Each stripsIndications: glucose 3 6 Uncontrolled type 2 times daily diabetes mellitus with peripheral neuropathy Suspended lancets 28 Check blood 100 Each 11 gaugeIndications: glucose 3 6 Uncontrolled type 2 times daily. diabetes mellitus with peripheral neuropathy 10/19/2018 Discontinued blood glucose Use as 1 [...] tablet by mouth 2 8 times daily. Suspended escitalopram oxalate Take 1 tablet 0 (LEXAPRO) 20 mg tablet by mouth 8 daily. 06/18/2018 Discontinued metFORMIN (GLUCOPHAGE) Take 1 tablet 180 tablet 1 500 mg tabletIndications: by mouth 2 8 Type 2 diabetes mellitus times daily without complication, (with meals). without long-term current use of insulin Suspended metoprolol tartrate Take 0.5 90 tablet 1 (LOPRESSOR) 25 mg tablets by 8 tabletIndications: mouth 2 times Essential hypertension, daily. benign Suspended dicyclomine (BENTYL) 10 Take 1 90 capsule 1 mg capsuleIndications: capsule by 8 Irritable bowel syndrome mouth 3 times with diarrhea daily. 06/18/2018 tropicamide (MYDRIACYL) Instill 1 15 mL 0 0.5 % ophthalmic Drop in each 8 solutionIndications: Type eye once as 2 diabetes mellitus needed for up without complication, to 1 dose without long-term current (for poor use of insulin retina scan image). Suspended metFORMIN (GLUCOPHAGE) Take 1 tablet 180 tablet 1 500 mg tabletIndications: by mouth 2 8 Type 2 diabetes mellitus times daily without complication, (with meals). without long-term current use of insulin Suspended OLANZapine (ZYPREXA) 5 mg Take 1 tablet 0 tablet by mouth at 8 bedtime nightly. Suspended blood glucose meter Use as 1 Kit 0 (PRECISION XTRA directed.. 8 GLUCOMETER)Indications: Type 2 diabetes mellitus without complication, without long-term current use of insulin Suspended blood glucose (PRECISION Use 2 times 50 Each 3 XTRA TEST STRIPS) test weekly (once 8 stripsIndications: Type 2 per day on diabetes mellitus without Mon,Thurs) to complication, without test blood long-term current use of sugar. insulin 10/19/2018 Discontinued lancets 28 Use 2 times 100 Each 1 gaugeIndications: Type 2 weekly as 8 diabetes mellitus without directed. complication, without long-term current use of insulin Suspended estrogen, Take 1 tablet 28 tablet 1 conjugated,-medroxyproges by mouth 8 terone (PREMPRO) daily. 0.625-2.5 mg per tabletIndications: Vasomotor symptoms due to menopause Suspended traMADol (ULTRAM) 50 mg Take 50 mg by 0 tablet mouth every 6 hours as needed for Pain. Suspended valsartan-hydrochlorothia Take 1 tablet 0 zide (DIOVAN HCT) by mouth 160-12.5 mg tablet daily. Suspended Saxagliptin (ONGLYZA) 5 Take by 0 mg Tab mouth. Suspended Misc. Devices (GLIPIZIDE) 0 Suspended glipiZIDE (GLUCOTROL XL) Take 2.5 mg 0 2.5 mg extended release by mouth tablet daily. Active Problems Problem Noted Date Kidney stone 10/19/2018 Bipolar 1 disorder 06/18/2018 Schizophrenia 06/18/2018 Irritable bowel syndrome with diarrhea 04/07/2016 Anxiety 04/07/2016 Essential hypertension, benign Hepatitis C Proteinuria Pure hypercholesterolemia Uncontrolled type 2 diabetes mellitus with kidney complication, without long-term current use of insulin Encounters Care Team Description Date Type Specialty Romel Reyes MD Koka, Sagarika, MD Left lower quadrant pain (Primary Dx); Renal calculi 10/19/2018 Emergency 10/19/2018 Travel Grace Mitchell DO Type 2 diabetes mellitus without complication, without long-term current use of insulin (Primary Dx); Essential hypertension, benign; Preventative health care; Bipolar 1 disorder; Schizophrenia, unspecified type; Vasomotor symptoms due to menopause 06/18/2018 Office Visit Family Practice Grace Mitchell DO Type 2 diabetes mellitus without complication, without long-term current use of insulin 06/18/2018 Orders Only Family Practice Yoshi Ortiz III, MD Irritable bowel syndrome with diarrhea 05/24/2018 Refill Family Practice Yoshi Ortiz III, MD Essential hypertension, benign (Primary Dx); Type 2 diabetes mellitus without complication, without long-term current use of insulin; Immunization due 04/12/2018 Office Visit Family Practice Pérez Paulino MD Anxiety (Primary Dx) 04/09/2018 Emergency Emergency Medicine after 10/19/2017 Immunizations Name Dates Previously Given Next Due [...] Vital Signs Time Taken Vital Sign Reading 10/20/2018 11:17 AM OPTICIANRY TEACHER Blood Pressure 110/73 10/20/2018 8:00 AM OPTICIANRY TEACHER Pulse 112 10/20/2018 11:17 AM OPTICIANRY TEACHER Temperature 36.7 C (98.1 F) 10/19/2018 9:00 PM OPTICIANRY TEACHER Respiratory Rate 16 10/19/2018 2:45 PM OPTICIANRY TEACHER Oxygen Saturation 95% - Inhaled Oxygen - Concentration 10/19/2018 9:00 PM OPTICIANRY TEACHER Weight 61.7 kg (136 lb) 10/19/2018 9:00 PM OPTICIANRY TEACHER Height 162.6 cm (5' 4") 10/19/2018 9:00 PM OPTICIANRY TEACHER Body Mass Index 23.34 Plan of Treatment Health Maintenance Due Date Last Done Comments [...] Belle Note: Unable to eat regular food Procedures * The patient is currently admitted. The information in this section might not be complete until the patient is discharged. Comments Procedure Name Priority Date/Time Associated Diagnosis GLUCOSE POC Routine 10/20/2018 7:12 AM OPTICIANRY TEACHER DUPLEX DOPPLER UPPER STAT 10/20/2018 EXTREMITY VENOUS, 6:20 AM OPTICIANRY TEACHER UNILATERAL OR LIMITED SEQUENTIAL COMPRESSION Routine 10/20/2018 PUMP 4:59 AM OPTICIANRY TEACHER HEMOGLOBIN A1C Routine 10/20/2018 4:00 AM OPTICIANRY TEACHER PHOSPHORUS Routine 10/20/2018 4:00 AM OPTICIANRY TEACHER MAGNESIUM Routine 10/20/2018 4:00 AM OPTICIANRY TEACHER BASIC METABOLIC PANEL Routine 10/20/2018 4:00 AM OPTICIANRY TEACHER CBC/DIFF Routine 10/20/2018 4:00 AM OPTICIANRY TEACHER URINE DRUG SCREEN Routine 10/20/2018 4:00 AM OPTICIANRY TEACHER SEQUENTIAL COMPRESSION Routine 10/19/2018 PUMP 10:15 PM OPTICIANRY TEACHER GLUCOSE POC Routine 10/19/2018 9:20 PM OPTICIANRY TEACHER ABG POC Routine 10/19/2018 8:00 PM OPTICIANRY TEACHER URINE CULTURE Routine 10/19/2018 3:00 PM OPTICIANRY TEACHER UA CHEMISTRIES STAT 10/19/2018 3:[address] ABDOMEN AND PELVIS STAT 10/19/2018 Left lower quadrant pain CONTRAST 2:28 PM OPTICIANRY TEACHER 12 LEAD EKG Routine 10/19/2018 12:08 PM OPTICIANRY TEACHER BMP POC Routine 10/19/2018 12:05 PM OPTICIANRY TEACHER VBG POC Routine 10/19/2018 12:05 PM OPTICIANRY TEACHER TROPONIN I POC Routine 10/19/2018 12:03 PM OPTICIANRY TEACHER LIPASE STAT 10/19/2018 11:58 AM OPTICIANRY TEACHER LIVER PROFILE STAT 10/19/2018 11:58 AM OPTICIANRY TEACHER CBC/DIFF STAT 10/19/2018 11:58 AM OPTICIANRY TEACHER OCCULT BLOOD ICT Routine 07/13/2018 Preventative health care 2:19 PM OPTICIANRY TEACHER HIV-1/HIV-2 ROUTINE Routine 06/12/2018 Type 2 diabetes [...] CHEMISTRIES STAT 04/09/2018 4:40 AM CDT after 10/19/2017 Results * GLUCOSE POC (10/20/2018 7:12 AM OPTICIANRY TEACHER) Only the most recent of 2 results within the time period is included. Glucose POC 94 74 - 106 mg/dL [facility] MAIN-STATION 1 Performing Organization Address City/State/Zipcode Phone Number MISYS [facility] MAIN-STATION 1 * DUPLEX DOPPLER UPPER EXTREMITY VENOUS, UNILATERAL OR LIMITED (10/20/2018 6:20 AM OPTICIANRY TEACHER) Impressions Performed At IMPRESSION: SMS 1.No deep venous thrombosis (DVT) in the interrogated deep veins of the left upper extremity. 2.Mild left upper extremity edema without drainable collections. Signed By: Michoacano Betts MD, 10/20/2018 9:14 AM Narrative Performed At EXAM:DUPLEX DOPPLER UPPER EXTREMITY VENOUS, LEFT US [facility] DATE: 10/20/2018 6:20 AM INDICATION: [...] Interface, Rad/Mammog In - 10/20/2018 9:20 AM OPTICIANRY TEACHER EXAM: DUPLEX DOPPLER UPPER EXTREMITY VENOUS, LEFT [...] MD, 10/20/2018 9:14 AM Performing Organization Address City/State/Zipcode Phone Number SMS * HEMOGLOBIN A1C (10/20/2018 4:00 AM OPTICIANRY TEACHER) Only the most recent of 2 results within the time period is included. Hemoglobin A1c 5.4 4.3 - 6.1 % [facility]IN-STATION 1 Est Average 108.3 mg/dL [facility] Gluc MAIN-STATION 1 Specimen Blood Performing Organization Address [facility] Phone Number [facility] MAIN-STATION 1 * URINE DRUG SCREEN (10/20/2018 4:00 AM OPTICIANRY TEACHER) Amphetamine Negative NEG [facility] Comment: MAIN-STATION 1 Calibrated Standard: D-Methamphetamine Positive if urine level >im=9245 ng/mL Test performed on [id number] using EMIT Immunoassay Barbiturate Negative NEG [facility] Comment: MAIN-STATION 1 Calibrated Standard: Secobarbital Positive if urine level is >ys=514 ng/mL Test performed on [id number] using EMIT Immunoassay Benzodiazepine Negative NEG [facility] Comment: MAIN-STATION 1 Calibrated Standard: Lormethazepam Positive if urine level is >cc=140 ng/mL Test performed on [id number] using EMIT Immunoassay Cannabinoid Negative NEG [facility] Comment: MAIN-STATION 1 Calibrated Standard: 11 nor-delta(9)-THC carboxylic a Positive if urine level >or=50 Test performed on [id number] using EMIT Immunoassay Cocaine Negative NEG [facility] Comment: MAIN-STATION 1 Calibrated Standard: Benzoylecgonine Positive if urine level >cq=684 Test performed on [id number] using EMIT Immunoassay Opiate, Ur Positive (A) NEG [facility] Comment: MAIN-STATION 1 Calibrated Standard: Morphine Positive if urine level >pg=390 Test performed on [id number] using EMIT Immunoassay PCP Negative NEG [facility] Comment: MAIN-STATION 1 Calibrated Standard: Phencyclidine Positive if urine level >or=25 Test performed on [id number] using EMIT Immunoassay Urine Toxicology Screen results are to be used only for Medical purposes. Specimen Urine Performing Organization Address City/[facility] Phone Number [facility]YS [facility] MAIN-STATION 1 * PHOSPHORUS (10/20/2018 4:00 AM OPTICIANRY TEACHER) Phosphorus 3.4 2.5 - 5.0 mg/dL [facility] MAIN-STATION 1 Specimen Blood Performing Organization Address City/[facility] Phone Number [facility] MAIN-STATION 1 * MAGNESIUM (10/20/2018 4:00 AM OPTICIANRY TEACHER) Magnesium 2.1 1.9 - 2.7 mg/dL [facility] MAIN-STATION 1 Specimen Blood Performing Organization Address City/[facility] Phone Number [facility] MAIN-STATION 1 * CBC/DIFF (10/20/2018 4:00 AM OPTICIANRY TEACHER) Only the most recent of 3 results within the time period is included. WBC 5.6 4.5 - 11.0 K/uL [facility] MAIN[facility]STATION 2 RBC 3.93 (L) 4.20 - 5.40 M/uL [facility] MAIN[facility]ST[facility] 2 Hemoglobin 11.3 (L) 12.0 - 16.0 g/dL [facility]ST[facility] 2 Hematocrit 33.5 (L) 37.0 - 47.0 % [facility] 2 MCV 85 82 - 92 fL [facility] 2 MCH 28.8 27.0 - 32.0 pg [facility]ST[facility] 2 MCHC 33.7 32.0 - 36.0 g/dL [facility] 2 RDW 38.1 36.4 - 46.3 fL [facility] 2 Platelet 108 (L) 150 - 400 K/uL [facility] MAIN[facility]STATION 2 Mean Platelet 9.6 9.4 - 12.4 fL [facility] Volume MAIN-STATION 2 Percent NRBC 0.0 [facility] 2 Absolute NRBC 0.00 [facility] 2 Neutrophil 68.4 34.0 - 70.0 % [facility] 2 Lymphocyte 22.8 20.0 - 50.0 % [facility] 2 Monocyte 7.5 5.0 - 12.0 % [facility] 2 Eosinophil 0.7 0.7 - 5.0 % [facility] 2 Basophil 0.2 0.1 - 1.2 % [facility] 2 Pct Immat Gran 0.4 0.0 - 0.5 [facility] 2 Neutrophil, Abs 3.84 1.56 - 6.13 K/uL [facility]IN[facility]ST[facility] 2 Lymphocyte, Abs 1.28 1.18 - 3.74 K/uL [facility] MAIN-STATION 2 Monocyte, Abs 0.42 (H) 0.24 - 0.36 K/uL [facility] MAIN-STATION 2 Eosinophil, Abs 0.04 0.04 - 0.36 K/uL [facility] MAIN-STATION 2 Basophil, Abs 0.01 0.01 - 0.08 K/uL [facility] MAIN-STATION 2 Absol Immat 0.02 0.00 - 0.03 K/uL [facility] Gran MAIN-STATION 2 Specimen Blood Performing Organization Address [facility] Phone Number MISYS [facility] MAIN-STATION 2 * BASIC METABOLIC PANEL (10/20/2018 4:00 AM OPTICIANRY TEACHER) CO2 28 21 - 31 mmol/L [facility] MAIN-STATION 1 Chloride 106 98 - 107 mmol/L [facility] MAIN-STATION 1 Potassium 3.7 3.5 - 5.1 mmol/L [facility] MAIN-STATION 1 Sodium 140 136 - 145 mmol/L [facility] MAIN-STATION 1 Glucose 69 (L) 70 - 110 mg/dL [facility] MAIN-STATION 1 Urea Nitrogen 14 7 - 25 mg/dL [facility] MAIN-STATION 1 Creatinine 0.70 0.6 - 1.2 mg/dL [facility] MAIN-STATION 1 Anion Gap 6 [facility] MAIN-STATION 1 Calcium 8.3 (L) 8.6 - 10.3 mg/dL [facility] MAIN-STATION 1 GFR, Estimated >60 mL/min/1.73 m2 [facility] MAIN-STATION 1 GFR, Estim, >60 mL/min/1.73 m2 [facility] Afr-Am MAIN-STATION 1 Specimen Blood Performing Organization Address [facility] Phone Number MISYS [facility] MAIN-STATION 1 * ABG POC (10/19/2018 8:00 PM OPTICIANRY TEACHER) pH, Art POC 7.41Comment: Physician 7.35 - 7.45 [facility] Notified MAIN-STATION 1 pCO2,Art POC 39.1 32.0 - 45.0 mm Hg [facility] MAIN-STATION 1 pO2, Art POC 51 (L) 72 - 104 mm Hg [facility] MAIN-STATION 1 Base Excess, 0 mmol/L [facility] ART POC MAIN-STATION 1 HCO3, Art POC 25.0 22.0 - 26.0 mmol/L [facility] MAIN-STATION 1 % Sat, Art POC 86 (L) 95 - 99 % [facility]IN[facility]STATION 1 Lactic Acid POC 2.71 (H) 0.4 - 2.0 mmol/L [facility] MAIN-STATION 1 Sample Type Art [facility]IN[facility]ST[facility] 1 TCO2, ART POC 26 21 - 32 mmol/L [facility] MAIN-STATION 1 Performing Organization Address [facility] [place] Phone Number MISYS [facility] MAIN-STATION 1 * UA CHEMISTRIES (10/19/2018 3:00 PM OPTICIANRY TEACHER) Only the most recent of 2 results within the time period is included. Color Yellow [facility]IN[facility] 2 Clarity Clear [facility]IN[facility] 2 Spec Orange 1.030 1.001 - 1.035 [facility] 2 pH 7.0 5 - 8 [facility]IN[facility]ST[facility] 2 Protein 1+ (A) NEG [facility]IN-STATION 2 Glucose 2+ (A) NEG [facility] MAIN-STATION 2 Ketone 1+ (A) NEG [facility] MAIN-STATION 2 Bilirubin Negative NEG [facility] MAIN-STATION 2 Nitrate Negative NEG [facility] MAIN-STATION 2 Urobilinogen <1.0 0.2 - 1.0 EU/dL [facility] MAIN-ST[facility] 2 Leukocyte Negative NEG [facility]IN-ST[facility] 2 Blood 3+ (A) NEG [facility] MAIN-STATION 2 RBC >182 (H) 0 - 4 /HPF [facility] MAIN-STATION 2 WBC 1 0 - 5 /HPF [facility] MAIN-STATION 2 Epithelial Cell 2 /HPF [facility] MAIN-STATION 2 Mucous Present [facility]IN-STATION 2 Specimen Urine Performing Organization Address [facility] [place] Phone Number MISYS [facility] MAIN-STATION 2 * CT ABDOMEN AND PELVIS CONTRAST (10/19/2018 2:28 PM OPTICIANRY TEACHER) Impressions Performed At IMPRESSION: SMS 1. Left [...] Interface, Rad/Mammog In - 10/19/2018 2:55 PM OPTICIANRY TEACHER EXAM: CT ABDOMEN AND PELVIS WITH CONTRAST [...] MD, 10/19/2018 2:50 PM Performing Organization Address City/[facility] Phone Number SMS * 12 LEAD EKG (10/19/2018 12:08 PM OPTICIANRY TEACHER) 12 LEAD EKG [facility] Test Date:2018-10-19 Pat Name: NADIA MCKEON Department: [id number] Room: Gender: Technician Assistant: :[id number] Requested By: PÉREZ Hart Order Number: [id number] Reading MD: Randy Arteaga Measurements Intervals [place] Rate: 91 P:37 [place]: 161 QRS: 66 QRSD: 84 T:69 QT: 385 QTc:476 Interpretive Statements SINUS RHYTHM WITH FREQUENT VENTRICULAR PREMATURE COMPLEXES Abnormal ECG Electronically Signed On 10-19-2018 14:00:24 OPTICIANRY TEACHER by Randy Arteaga Performing Organization Address [facility] Phone Number SMS * VBG POC (10/19/2018 12:05 PM OPTICIANRY TEACHER) pH, Taj POC 7.47 (H)Comment: Physician 7.33 [...] mmol/L [facility] MAIN-STATION 1 Performing Organization Address City/[facility] [place] Phone Number MILAN [facility] MAIN-STATION 1 * BMP POC (10/19/2018 12:05 PM OPTICIANRY TEACHER) Only the most recent of 2 results within the time period is included. CO2 POC 22Comment: Physician Notified 21 - 32 mmol/L [facility] MAIN-STATION 1 Chloride POC 101 98 - 107 mmol/L [facility] MAIN-STATION 1 Potassium POC 4.0 3.50 - 5.10 mmol/L [facility] MAIN-STATION 1 Sodium POC 139 136 - 145 mmol/L [facility] MAIN-STATION 1 Glucose POC 238 (H) 74 - 106 mg/dL [facility] MAIN-STATION 1 Urea Nitrogen 15 7 - 18 mg/dL [facility] POC MAIN-STATION 1 Creatinine POC 0.8 0.6 - 1.3 mg/dL [facility] MAIN-STATION 1 Calcium Ionized 1.03 (L) 1.15 - 1.29 mmol/L [facility] POC MAIN-STATION 1 Hemoglobin POC 13.9 12.0 - 16.0 g/dL [facility] MAIN-STATION 1 Hematocrit POC 41.0 37.0 - 47.0 % [facility] MAIN-STATION 1 GFR, Estimated >60 mL/min/1.73 m2 [facility] MAIN-STATION 1 GFR, Estim, >60 mL/min/1.73 m2 [facility] Afr-Am MAIN-STATION 1 Performing Organization Address [facility] Phone Number MILAN [facility] MAIN-STATION 1 * TROPONIN I POC (10/19/2018 12:03 PM OPTICIANRY TEACHER) Troponin POC 0.01Comment: Physician 0.00 - 0.08 ng/mL [facility] Notified MAIN-STATION 1 Performing Organization Address [facility] Phone Number MILAN [facility] MAIN-STATION 1 * LIVER PROFILE (10/19/2018 11:58 AM OPTICIANRY TEACHER) T Protein 7.2 6.0 - 8.3 g/dL [facility] MAIN-STATION 1 Albumin 4.5 3.7 - 5.3 g/dL [facility] MAIN-STATION 1 T Bilirubin 0.9 0.2 - 1.2 mg/dL [facility] MAIN-STATION 1 Alk Phos 55 34 - 104 U/L [facility] MAIN-STATION 1 AST 18 13 - 39 U/L [facility] MAIN-STATION 1 ALT 11 7 - 52 U/L [facility] MAIN-STATION 1 D Bilirubin 0.2 0.0 - 0.2 mg/dL [facility] MAIN-STATION 1 Specimen Blood Performing Organization Address [facility] Phone Number MILAN [facility] MAIN-STATION 1 * LIPASE (10/19/2018 11:58 AM OPTICIANRY TEACHER) Lipase 32 11 - 81 U/L [facility] MAIN-STATION 1 Specimen Blood Performing Organization Address [facility] Phone [facility] MAIN-STATION 1 * OCCULT BLOOD ICT (07/13/2018 2:19 PM OPTICIANRY TEACHER) Occult Blood Negative [facility] I[facility] Specimen Stool Performing Organization Address [facility] [place] Phone Number [facility] * HIV-1/HIV-2 ROUTINE SCREENING (06/12/2018 8:15 AM CDT) HIV-1/HIV-2 Negative NEG [facility] MAIN-STATION 4 Performing Organization Address [facility] [place] Phone Number MILAN [facility] MAIN-STATION 4 * ELECTROLYTES (06/12/2018 8:15 AM CDT) Sodium 139 136 - 145 mmol/L [facility] MAIN-STATION 1 Potassium 4.4 3.5 - 5.1 mmol/L [facility] MAIN-STATION 1 Chloride 103 98 - 107 mmol/L [facility] MAIN-STATION 1 CO2 29 21 - 31 mmol/L [facility] MAIN-STATION 1 Anion Gap 7 [facility] MAIN-STATION 1 Specimen Blood Performing Organization Address [facility] [place] Phone Number MILAN [facility] MAIN-STATION 1 * LIPID PROFILE (06/12/2018 8:15 AM CDT) Cholesterol 181 mg/dL [facility] MAIN-STATION Comment: 1 REFERENCE RANGE: Desirable: <200 mg/dL Borderline: 200-240 mg/dL High Risk: >240 mg/dL Triglyceride 54 <150 mg/dL [facility] MAIN-STATION Comment: 1 REFERENCE RANGE: Normal: <150 mg/dL Borderline High: 150-199 mg/dL High: 200-499 mg/dL Very High: >zb=949 mg/dL HDL 58 mg/dL [facility] MAIN-STATION Comment: 1 Increased CHD risk: <40 mg/dL Decreased CHD risk: >60 mg/dL LDL 112 mg/dL [facility] MAIN-STATION Comment: 1 REFERENCE RANGE: Optimal: <100 mg/dL Near Optimal: 100-129 mg/dL Borderline High: 130-159 mg/dL High: 160-189 mg/dL Very High: >wl=793 mg/dL Specimen Blood Performing Organization Address City/State/[facility] Phone Number [facility] MAIN-STATION 1 * GLUCOSE (06/12/2018 8:15 AM CDT) Glucose 125 (H) 70 - 110 mg/dL [facility] MAIN-STATION 1 Specimen Blood Performing Organization Address [facility] Phone Number M[facility] MAIN-STATION 1 * UREA NITROGEN/CREA (06/12/2018 8:15 AM CDT) Urea Nitrogen 16 7 - 25 mg/dL [facility] MAIN-STATION 1 Creatinine 0.70 0.6 - 1.2 mg/dL [facility] MAIN-STATION 1 GFR, Estimated >60 mL/min/1.73 m2 [facility] MAIN-STATION 1 GFR, Estim, >60 mL/min/1.73 m2 [facility] MAIN-STATION Afr-Am 1 Specimen Other (Specify in Comments) Performing Organization Address [facility] [place] Phone Number MISRUSH [facility] MAIN-STATION 1 * MICROALBUM, URINE (04/12/2018 [...] a week is recommended. Performing Organization Address [facility] [place] Phone Number Stat[facility] MAIN-STATION 1 * DIABETIC FOOT EXAM (04/12/2018 10:50 AM CDT) Narrative Performed At Yoshi Ortiz III, MD 04/12/20181:22 PM Diabetic Foot Exam was performed at 04/12/2018 10:58 AM.Right foot sensation is reduced, right foot pulses are normal, right foot appearance is normal.Left foot sensation is reduced,left foot pulses are normal, left foot appearance is normal. after 10/19/2017 Insurance Type Payer Benefit Subscriber ID Effective Phone Address Plan / Dates Group [employer] [facility] [employer] xxxxxxxxxxx 2018-P [phone] [address] [place] [address] MEDICARE MEDICARE xxxxxxxxxxx 2018-P [id number] [place] [address] CIGNA HEALTH [facility] CIGNA xxxxxxxxxx 2018- [phone] Present [address] [place] [address] [place] [id number] xxxxxxxxx 2018- [phone] Present [id number] MEDICARE [place], [place] BENEF[place] [address] Y HCHD PLAN HCHD PLAN xxxxxxx 2018- [phone] [address] [address] [address] [place] [address] Advance Directives For more information, please contact: [address] [address] Date Inactivated Comments Code Status Date Activated Full Code 10/19/2018 10:16 PM 10/19/2018 10:16 PM Full Code 10/19/2018 8:21 PM
[2018-12-21] MEDS ORDERED: ASPIRIN 81 MG CHEW TAB PO ONE (09:15)
[2018-12-21] MEDS ORDERED: ONDANSETRON HCL INJ 2MG/ML 2ML 2 MG/ML VIAL IV STA (09:26)
[2018-12-21] MEDS ORDERED: DICYCLOMINE HCL 20 MG/2 ML VIAL IM ONE (09:30)
[2018-12-21] MEDS ORDERED: CEFTRIAXONE SOD 1 GM/NS 50 ML 50 ML IV ONE (09:30)
[2018-12-21] MEDS ORDERED: SODIUM CHLORIDE 0.9% 1000ML 1,000 ML ONE (09:46)
[2018-12-21 10:27] LABS: ALBUMIN 3.5 g/dL (3.5-5.0); ANION GAP 15.6 mmol/L (8-16); CALCIUM 9.1 mg/dL (8.4-10.2); CREATININE, SERUM 1.01 mg/dL (0.57-1.11); POTASSIUM 3.6 mmol/L (3.5-5.1)
[2018-12-21 10:28] LABS: BASOPHILS % 0.3 % (0.0-1.0); EOSINOPHILS % 0.1 % (0.0-6.0); HEMATOCRIT 39.8 % (34.2-44.1); LYMPHOCYTES # (AUTO) 1.6 (1.0-3.2); MEAN CORPUSCULAR HEMOGLOBIN 28.7 pg (28-32); MEAN CORPUSCULAR HGB CONC 35.2 g/dL (31-35); MEAN CORPUSCULAR VOLUME 81.6 fL (81-99); MONOCYTES # (AUTO) 0.6 (0.2-0.8); MONOCYTES % 6.9 % (4.4-11.3); NEUTROPHILS % 75.4 % (38.7-80.0); PLATELET COUNT 198 x10e3/uL (140-360); RED BLOOD COUNT 4.88 x10e6/uL (3.6-5.1); RED CELL DISTRIBUTION WIDTH 12.7 % (11.7-14.4)
[2018-12-21] MEDS ORDERED: SODIUM CHLORIDE 0.9% 1000ML 1,000 ML IV ONE (10:30)
[2018-12-21 10:35] LABS: CREATINE KINASE MB 1.3 ng/mL (0-5.0)
[2018-12-21 10:37] LABS: AMPHETAMINES SCREEN,URINE NEGATIVE (NEGATIVE); BENZODIAZEPINES SCREEN,URINE POSITIVE (NEGATIVE); PHENCYCLIDINE SCREEN,URINE NEGATIVE (NEGATIVE)
[2018-12-21 10:38] LABS: CLARITY,URINE CLOUDY (CLEAR); COLOR,URINE RED (YELLOW); LEUKOCYTE ESTERASE ,URINE TRACE (NEGATIVE); NITRITE,URINE POSITIVE (NEGATIVE); PROTEIN,URINE DIPSTICK 2+ (NEGATIVE)
[2018-12-21 10:39] LABS: BILIRUBIN,URINE 2+ (NEGATIVE); KETONES,URINE 2+ (NEGATIVE); URINE UROBILINOGEN 1 mg/dL (0.2 - 1)
[2018-12-21 10:43] LABS: BACTERIA,URINE MODERATE /HPF; EPITHELIAL CELLS,URINE FEW /LPF; RBC,URINE >50 /HPF (0-5)
[2018-12-21] MEDS ORDERED: CEFTRIAXONE SOD 1 GM/NS 50 ML 50 ML IV SCH (11:00)
--- NOTE | 2018-12-21 11:00 | NUR ---
VERBAL REPORT GIVEN TO MARIANNA BOSWELL.
--- NOTE | 2018-12-21 11:00 | NUR ---
RECEIVED REPORT FROM MARIANNA TATE. ASSUMED CARE AT THIS TIME, PT MEDICATED FOR NAUSEA/VOMITING AT THIS TIME, SEE eMAR. PT BREATHING EVEN/UNLABORED, CALL LIGHT IN REACH, WILL CONTINUE TO MONITOR.
[2018-12-21] MEDS ORDERED: DIPHENHYDRAMINE HCL INJ 50 MG/ML VIAL IV ONE (11:30)
[2018-12-21] MEDS ORDERED: METOCLOPRAMIDE HCL 10 MG/2ML VIAL IV ONE (11:30)
--- NOTE | 2018-12-21 11:50 | NUR ---
PT RESTING IN BED IN LOW FOWLERS BREATHING EVEN/UNLABORED, EYES CLOSED.
--- NOTE | 2018-12-21 12:14 | Diagnostic Imaging Report ---
EXAMINATION: CT of the abdomen and pelvis with contrast. TECHNIQUE: Spiral CT images of the abdomen and pelvis were performed from the lung bases to the lesser trochanters after the intravenous administration of 100 cc Isovue-370. Coronal and sagittal reformatted images were obtained. COMPARISON: None. CLINICAL HISTORY:Upper abdominal pain, nausea, recent renal stent replacement. DISCUSSION: ABDOMEN/PELVIS: LOWER THORAX:Subsegmental atelectasis in the dependent right lower lobe. Otherwise unremarkable. HEPATOBILIARY: 1.1 cm cyst in segment 2 adjacent to the left hepatic vein. Otherwise no focal hepatic lesion or intrahepatic biliary ductal dilatation. Questionable nodularity of the hepatic contour for example along segments 5 and 6 seen on series 2 image 35. The gallbladder has been removed with metallic clips in the gallbladder fossa. SPLEEN: No splenomegaly. PANCREAS: No focal masses or ductal dilatation. ADRENALS: No adrenal nodules. KIDNEYS/URETERS: Left internal ureteral stent is noted, with the proximal locking loop in the renal pelvis and the distal locking loop in the urinary bladder to the left midline. Mild hydronephrosis and urothelial enhancement. Punctate nonobstructing calculus in the lower pole collecting system seen on series 2 image 42. No calculi are identified along the course of the ureteral stent or within the urinary bladder. Left lower pole exophytic simple cyst. Symmetric renal parenchymal enhancement. Mild periureteral fat stranding. PELVIC ORGANS/BLADDER: Air in the nondependent portion of the bladder presumably related to recent instrumentation. Uterus is anteflexed with a 1.8 cm fundal hypoattenuating lesion likely a leiomyoma. No adnexal mass. PERITONEUM/RETROPERITONEUM: No free air or fluid. LYMPH NODES: No pelvic sidewall, retroperitoneal, or mesenteric lymphadenopathy. VESSELS: Abdominal aorta, major branch vessels, and iliac arterial systems are patent. Mild atherosclerotic vascular disease of the abdominal aorta without aneurysmal dilatation. Large splenic vein-left renal venous shunt with diminutive anatomic splenic vein. GI TRACT: The large bowel shows no distention or wall thickening. Gas and fecal material are noted throughout. Short segment narrowing of the proximal transverse colon seen on series 2 image 38 is likely related to peristalsis. The appendix is not definitively identified. Postsurgical changes of the gastroesophageal junction reflective of fundoplication. No small bowel dilatation to suggest obstruction area BONES AND SOFT TISSUE: No osseous destructive lesions. No focal soft tissue abnormalities. Scattered foci of soft tissue attenuation within the subcutaneous fat of the anterior abdominal wall likely related to subcutaneous medication administration. Post surgical changes of the anterior abdominal wall. IMPRESSION: Appropriately positioned left internal ureteral stent, with mild hydronephrosis, urothelial enhancement, and periureteral inflammation presumably related to recent urological procedure. No calculi are identified along the course of the ureteral stent. Punctate nonobstructing left renal calculus. Questionable nodularity of the hepatic contour which may indicate cirrhosis with a splenorenal portal-systemic venous shunt. Correlate for chronic hepatitis or alcohol abuse and consider gastroenterology referral. Suspected uterine fundal fibroid may be further evaluated by nonemergent pelvic ultrasound if clinically warranted. Signed by: Dr. Juventino Arceo M.D. on 12/21/2018 12:11 PM
[2018-12-21 13:54] VITALS: BP 119/67
[2018-12-21] MEDS ORDERED: BACTRIM DS TAB1 EACH PO (13:58)
[2018-12-21] MEDS ORDERED: PYRIDIUM100 MG PO (13:58)
[2018-12-21] MEDS ORDERED: SODIUM CHLORIDE 0.9% 50ML 50 ML ONE (17:10)
[2018-12-21] MEDS ORDERED: IOPAMIDOL 370 MG/ML 200 ML INFUS..BTL INJ ONE (17:10)
[2018-12-22] MEDS ORDERED: ULTRAM50 MG PO (15:02)
[2018-12-22] MEDS ORDERED: STOOL SOFTENER100 MG (15:02)
[2018-12-22] MEDS ORDERED: valsartan (15:02)
[2018-12-22] MEDS ORDERED: HYOSCYAMINE SL (15:02)
[2018-12-22] MEDS ORDERED: METFORMIN HCL500 MG PO (15:02)
== END 2018-12-21 15:12 | disposition home or self-care (01) ==
LOC: ER 09:04
DX: N30.91 Cystitis, unspecified with hematuria (principal)
CPT/HCPCS: 36415; 74177; 80053; 80307; 81001; 82550; 82553; 83605; 83690; 84484; 85025; 87086; 99284; J0500; J0696; J1200; J2405; J2765; J7030; Q9967

== ENCOUNTER 2018-12-22 12:29 | Observation (INO) | payer MEDICARE ==
[~2018-12-22] VITALS: Ht 165.1 cm; Wt 63.5 kg
[~2018-12-22 12:29] MED LIST: BACTRIM DS TAB1 EACH PO; PYRIDIUM100 MG PO
--- NOTE | 2018-12-22 12:33 | NUR ---
rec'd pt in rm 3 via [facility] for n/v. placed on the monitor and labs drawn. pt is very groggy, but able to answer all questions. dr. kahn at [facility]
[2018-12-22] MEDS ORDERED: SODIUM CHLORIDE 0.9% 1000ML 1,000 ML IV STA (12:45)
[2018-12-22] MEDS ORDERED: DIPHENHYDRAMINE HCL INJ 50 MG/ML VIAL IV NR (13:00)
[2018-12-22] MEDS ORDERED: METOCLOPRAMIDE HCL 10 MG/2ML VIAL IV NR (13:00)
--- NOTE | 2018-12-22 13:10 | NUR ---
meds given and pt has tolerated well so far.
[2018-12-22 13:12] LABS: BASOPHILS % 0.3 % (0.0-1.0); EOSINOPHILS % 0.4 % (0.0-6.0); LYMPHOCYTES # (AUTO) 0.7 (1.0-3.2); LYMPHOCYTES % 10.8 % (18.0-39.1); MEAN CORPUSCULAR HEMOGLOBIN 29.2 pg (28-32); MEAN CORPUSCULAR HGB CONC 36.1 g/dL (31-35); MEAN CORPUSCULAR VOLUME 80.9 fL (81-99); MONOCYTES # (AUTO) 0.4 (0.2-0.8); NEUTROPHILS # (AUTO) 5.6 (2.1-6.9); NEUTROPHILS % 82.2 % (38.7-80.0); PLATELET COUNT 144 x10e3/uL (140-360); RED BLOOD COUNT 4.45 x10e6/uL (3.6-5.1); RED CELL DISTRIBUTION WIDTH 12.2 % (11.7-14.4)
--- NOTE | 2018-12-22 13:15 | NUR ---
assisted pt to br with a slow,steady gait to obtain urine
[2018-12-22 13:30] LABS: ALANINE AMINOTRANSFERASE 13 IU/L (0-55); ALBUMIN 3.4 g/dL (3.5-5.0); ALKALINE PHOSPHATASE 63 IU/L (40-150); ANION GAP 16.4 mmol/L (8-16); BLOOD UREA NITROGEN 14 mg/dL (7-26); BUN/CREATININE RATIO 16 (6-25); CALCIUM 9.4 mg/dL (8.4-10.2); CARBON DIOXIDE 23 mmol/L (22-29); CHLORIDE 98 mmol/L (98-107); CREATINE KINASE 124 IU/L (29-168); CREATININE, SERUM 0.87 mg/dL (0.57-1.11); EST GLOMERULAR FILTRATION RATE > 60 ML/MIN (60-); GLUCOSE 367 mg/dL (74-118); MAGNESIUM 1.7 MG/DL (1.3-2.1); POTASSIUM 3.4 mmol/L (3.5-5.1); SODIUM 134 mmol/L (136-145)
[2018-12-22] MEDS ORDERED: DIPHENHYDRAMINE HCL INJ 50 MG/ML VIAL IV PRN (13:30)
[2018-12-22] MEDS ORDERED: DEXTROSE 50% SYRINGE 50 ML IV PRN (13:30)
[2018-12-22 13:45] LABS: CLARITY,URINE HAZY (CLEAR); COLOR,URINE ORANGE (YELLOW); LEUKOCYTE ESTERASE ,URINE TRACE (NEGATIVE); NITRITE,URINE POSITIVE (NEGATIVE); PROTEIN,URINE DIPSTICK 2+ (NEGATIVE)
[2018-12-22 13:46] LABS: BILIRUBIN,URINE NEGATIVE (NEGATIVE); KETONES,URINE 3+ (NEGATIVE); URINE UROBILINOGEN 4 mg/dL (0.2 - 1)
[2018-12-22 13:54] LABS: AMYLASE 59 U/L (25-125); LIPASE 37 U/L (8-78)
[2018-12-22 14:14] LABS: AMORPHOUS SEDIMENT,URINE MODERATE (FEW); BACTERIA,URINE MANY /HPF; EPITHELIAL CELLS,URINE MODERATE /LPF; RBC,URINE >50 /HPF (0-5); WBC,URINE (MAN) >50 /HPF (0-5)
[2018-12-22] MEDS ORDERED: INSULIN LISPRO 100 UNIT/1 ML 3ML VIAL SQ STA (14:16)
[2018-12-22] MEDS: INSULIN LISPRO 100 UNIT/1 ML 3ML VIAL SQ SCH ×3 (14:18→23:37)
--- OUTSIDE RECORDS SUMMARY | 2018-12-22 14:21 | XMS REPORT | Clinical Summary ---
Author Author [facility] Organization [facility] Address Unknown Phone Unavailable Care Team Providers Care Airport Guide Name Role Phone Grace Mitchell PCP Allergies [...] 2 per day on diabetes mellitus without Mon,Th) to complication, without test blood long-term current [...] needed for stent, initial encounter, Pain. Pain 12/28/2018 Active tamsulosin (FLOMAX) 0.4 Take 1 10 capsule 0 mg extended release capsule by 9 capsuleIndications: mouth daily Nephrolithiasis for 10 days. 12/28/2018 Active hyoscyamine (LEVSIN/SL) Place 1 30 tablet 0 0.125 mg sublingual tablet under 9 tabletIndications: tongue every Nephrolithiasis 4 hours as needed for up to 10 days for Cramping. Active traMADol (ULTRAM) 50 mg Take 1 tablet 30 tablet 0 tabletIndications: by mouth 9 Nephrolithiasis every 6 hours as needed for Pain. Active Docusate Sodium 100 mg Take 100 mg 30 tablet 0 TabIndications: by mouth. 9 Nephrolithiasis 05/24/2018 Discontinued dicyclomine (BENTYL) 10 Take 1 [...] 4 hours as spasms needed (bladder spasms). 12/18/2018 Discontinued hyoscyamine (LEVSIN/SL) Place 1 30 tablet 0 0.125 mg sublingual tablet under 9 tabletIndications: tongue every Nephrolithiasis, Bladder 4 hours as spasms needed (bladder spasms). 12/20/2018 nitrofurantoin Take 1 40 capsule 0 (MACRODANTIN) 100 mg capsule by 9 capsuleIndications: mouth 4 times Urinary tract infection daily for 10 without hematuria, site days. unspecified Active Problems Problem Noted Date Kidney stone 10/19/2018 Nephrolithiasis 10/19/2018 Overview: Added automatically from request for surgery [id number] Bipolar 1 disorder 06/18/2018 Schizophrenia 06/18/2018 Irritable bowel syndrome with diarrhea 04/07/2016 Anxiety 04/07/2016 Essential hypertension, benign Hepatitis C Proteinuria Pure hypercholesterolemia Uncontrolled type 2 diabetes mellitus with kidney complication, without long-term current use of insulin Left lower quadrant pain Thrombocytopenia Left flank pain S/P ureteral stent placement Encounters Care Team Description Date Type Specialty Bettina Villa, RN 12/22/2018 Nurse Triage Rupa Simonis 12/18/2018 Anesthesia Event Sanaz Lipscomb MD URETEROSCOPY, LASER LITHOTRIPSY, STONE BASKETING, LEFT URETERAL STENT EXCHANGE 12/18/2018 Surgery Sanaz Lipscomb MD Nephrolithiasis (Primary Dx) 12/18/2018 Hospital Encounter Gracie Castro ResidentMD 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 (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) 12/10/2018 Telephone Urology Gracie Castro ResidentMD [...] current use of insulin 06/18/2018 Orders Only [facility] Yoshi Ortiz III, MD Irritable bowel syndrome with diarrhea 05/24/2018 Refill [facility] Yoshi Ortiz III, MD Essential hypertension, benign (Primary Dx); Type 2 diabetes mellitus without complication, without long-term current use of insulin; Immunization due 04/12/2018 Office Visit Family Practice Pérez Paulino MD Anxiety (Primary Dx) 04/09/2018 Emergency Emergency Medicine after 12/21/2017 Immunizations Name Dates Previously Given Next Due [...] Vital Signs Time Taken Vital Sign Reading 12/18/2018 8:45 PM CDT Blood Pressure 142/75 12/18/2018 8:45 PM CDT Pulse 96 12/18/2018 8:45 PM CDT Temperature 36.7 C (98 F) 12/18/2018 8:30 PM CDT Respiratory Rate 15 12/18/2018 8:45 PM CDT Oxygen Saturation 99% - Inhaled Oxygen - Concentration 12/18/2018 1:50 PM CDT Weight 64.6 kg (142 lb 6.4 oz) 12/05/2018 9:34 AM CDT Height 162.6 cm (5' 4") 12/05/2018 9:34 AM CDT Body Mass Index 24.44 Plan of Treatment Care Team Description Date Type Specialty 01/23/2019 Office Visit Urology Health Maintenance Due Date [...] Lot Implanted Type Area Manufactur er 02/25/2021 [id number] / / [id number] Stent Ureteral 6fr 24cm Ascerta Stent Left: Ureter(s) [employer] - [id number] cturer Implanted: Qty: 1 on 10/22/2018 by Rohith Boyle ResidentKS 08/12/2021 [id number] / / [id number] Lbj Stent Ureteral 6fr 24cm Ascerta Stent Left: Ureter(s) [employer] - [id number] cturer Implanted: Qty: 1 on 12/18/2018 by Sanaz Lipscomb MD Procedures Comments Procedure Name Priority Date/Time Associated Diagnosis [facility] SURGICAL PATHOLOGY Routine 12/18/2018 5:08 PM CDT [id number] Routine 12/18/2018 4:14 PM CDT Procedure Note - Pretty aNth CRNA - 12/18/2018 4:14 PM CDT Intubation Date/Time: 12/18/2018 4:06 PM Urgency: elective Airway not difficult General Informatio n and Staff Patient location during procedure: OR Anesthesio logist: Adriana Winslow MD Resident/C RNA: Pretty Nath CRNA Performed: resident/C RNA Indicatio ns and Patient Condition Indication s for airway management : anesthesia Spontaneou s Ventilatio n: absent (after induction) Preoxygena dashawn: yes Patient position: sniffing Mask difficulty assessment : 2 - vent by mask + OA or adjuvant +/- NMBA Final Airway Details Final airway type: endotrache al airway Successful airway: ETT Cuffed: yes Successful intubation technique: direct Facilitati ng devices/me thods: intubating stylet Endotrache al tube insertion site: oral Blade: Padilla Blade size: #2 Cords visualized : grade 1 Placement verified by: chest auscultati on and capnometry Cuff volume (mL): 7 Measured from: lips ETT to lips (cm): 21 Number of attempts at approach: 1 UROL - URETEROSCOPY, 12/18/2018 Nephrolithiasis LASER LITHOTRIPSY 2:30 PM CDT GLUCOSE POC Routine 12/18/2018 2:21 PM CDT URINE CULTURE Routine 12/06/2018 Urinary tract infection [...] CDT GLUCOSE POC Routine 10/23/2018 11:26 AM DIRECTOR OF ENROLLMENT GLUCOSE POC Routine 10/23/2018 6:46 AM DIRECTOR OF ENROLLMENT MAGNESIUM Routine 10/23/2018 5:20 AM DIRECTOR OF ENROLLMENT PHOSPHORUS Routine 10/23/2018 5:20 AM DIRECTOR OF ENROLLMENT BASIC METABOLIC PANEL Routine 10/23/2018 5:20 AM DIRECTOR OF ENROLLMENT CBC/DIFF Routine 10/23/2018 5:20 AM DIRECTOR OF ENROLLMENT GLUCOSE POC Routine 10/22/2018 8:34 PM DIRECTOR OF ENROLLMENT GLUCOSE POC Routine 10/22/2018 4:26 PM DIRECTOR OF ENROLLMENT GLUCOSE POC Routine 10/22/2018 2:46 PM DIRECTOR OF ENROLLMENT [id number] Routine 10/22/2018 1:59 PM DIRECTOR OF ENROLLMENT Procedure Note - Siobhan Daly - 10/22/2018 1:59 PM DIRECTOR OF ENROLLMENT Intubation Date/Time: 10/22/2018 1:33 PM Urgency: elective [...] UROL - CYSTOSCOPY 10/22/2018 Nephrolithiasis 11:35 AM DIRECTOR OF ENROLLMENT GLUCOSE POC Routine 10/22/2018 10:51 AM DIRECTOR OF ENROLLMENT U/S ABDOMEN LIMITED Routine 10/22/2018 Thrombocytopenia 9:45 AM DIRECTOR OF ENROLLMENT GLUCOSE POC Routine 10/22/2018 6:59 AM DIRECTOR OF ENROLLMENT IRON PROFILE Routine 10/22/2018 4:40 AM DIRECTOR OF ENROLLMENT FERRITIN Routine 10/22/2018 4:40 AM DIRECTOR OF ENROLLMENT VITAMIN B12 Routine 10/22/2018 4:40 AM DIRECTOR OF ENROLLMENT LIVER PROFILE Routine 10/22/2018 4:40 AM DIRECTOR OF ENROLLMENT PHOSPHORUS Routine 10/22/2018 4:40 AM DIRECTOR OF ENROLLMENT MAGNESIUM Routine 10/22/2018 4:40 AM DIRECTOR OF ENROLLMENT CBC/DIFF Routine 10/22/2018 4:40 AM DIRECTOR OF ENROLLMENT BASIC METABOLIC PANEL Routine 10/22/2018 4:40 AM DIRECTOR OF ENROLLMENT HCV RNA QUANT, PCR Routine 10/22/2018 4:40 AM DIRECTOR OF ENROLLMENT GLUCOSE POC Routine 10/21/2018 8:54 PM DIRECTOR OF ENROLLMENT GLUCOSE POC Routine 10/21/2018 4:42 PM DIRECTOR OF ENROLLMENT GLUCOSE POC Routine 10/21/2018 4:10 PM DIRECTOR OF ENROLLMENT GLUCOSE POC Routine 10/21/2018 11:15 AM DIRECTOR OF ENROLLMENT CITRATED PLATELET Routine 10/21/2018 10:48 AM DIRECTOR OF ENROLLMENT HIV-1/HIV-2 ROUTINE Routine 10/21/2018 SCREENING 10:48 AM DIRECTOR OF ENROLLMENT VITAMIN B12 Routine 10/21/2018 10:48 AM DIRECTOR OF ENROLLMENT FERRITIN Routine 10/21/2018 10:48 AM DIRECTOR OF ENROLLMENT IRON PROFILE Routine 10/21/2018 10:48 AM DIRECTOR OF ENROLLMENT CBC/DIFF Routine 10/21/2018 10:48 AM DIRECTOR OF ENROLLMENT PHOSPHORUS Routine 10/21/2018 8:56 AM DIRECTOR OF ENROLLMENT MAGNESIUM Routine 10/21/2018 8:56 AM DIRECTOR OF ENROLLMENT BASIC METABOLIC PANEL Routine 10/21/2018 8:56 AM DIRECTOR OF ENROLLMENT CBC/DIFF Routine 10/21/2018 8:56 AM DIRECTOR OF ENROLLMENT GLUCOSE POC Routine 10/21/2018 6:55 AM DIRECTOR OF ENROLLMENT GLUCOSE POC Routine 10/20/2018 9:06 PM DIRECTOR OF ENROLLMENT GLUCOSE POC Routine 10/20/2018 4:41 PM DIRECTOR OF ENROLLMENT GLUCOSE POC Routine 10/20/2018 11:19 AM DIRECTOR OF ENROLLMENT GLUCOSE POC Routine 10/20/2018 7:12 AM DIRECTOR OF ENROLLMENT DUPLEX DOPPLER UPPER STAT 10/20/2018 EXTREMITY VENOUS, 6:20 AM DIRECTOR OF ENROLLMENT UNILATERAL OR LIMITED SEQUENTIAL COMPRESSION Routine 10/20/2018 PUMP 4:59 AM DIRECTOR OF ENROLLMENT HEMOGLOBIN A1C Routine 10/20/2018 4:00 AM DIRECTOR OF ENROLLMENT PHOSPHORUS Routine 10/20/2018 4:00 AM DIRECTOR OF ENROLLMENT MAGNESIUM Routine 10/20/2018 4:00 AM DIRECTOR OF ENROLLMENT BASIC METABOLIC PANEL Routine 10/20/2018 4:00 AM DIRECTOR OF ENROLLMENT CBC/DIFF Routine 10/20/2018 4:00 AM DIRECTOR OF ENROLLMENT URINE DRUG SCREEN Routine 10/20/2018 4:00 AM DIRECTOR OF ENROLLMENT SEQUENTIAL COMPRESSION Routine 10/19/2018 PUMP 10:15 PM DIRECTOR OF ENROLLMENT GLUCOSE POC Routine 10/19/2018 9:20 PM DIRECTOR OF ENROLLMENT ABG POC Routine 10/19/2018 8:00 PM DIRECTOR OF ENROLLMENT URINE CULTURE Routine 10/19/2018 3:00 PM DIRECTOR OF ENROLLMENT UA CHEMISTRIES STAT 10/19/2018 3:[address] ABDOMEN AND PELVIS STAT 10/19/2018 Left lower quadrant pain CONTRAST 2:28 PM DIRECTOR OF ENROLLMENT 12 LEAD EKG Routine 10/19/2018 12:08 PM DIRECTOR OF ENROLLMENT BMP POC Routine 10/19/2018 12:05 PM DIRECTOR OF ENROLLMENT VBG POC Routine 10/19/2018 12:05 PM DIRECTOR OF ENROLLMENT TROPONIN I POC Routine 10/19/2018 12:03 PM DIRECTOR OF ENROLLMENT LIPASE STAT 10/19/2018 11:58 AM DIRECTOR OF ENROLLMENT LIVER PROFILE STAT 10/19/2018 11:58 AM DIRECTOR OF ENROLLMENT CBC/DIFF STAT 10/19/2018 11:58 AM DIRECTOR OF ENROLLMENT OCCULT BLOOD ICT Routine 07/13/2018 Preventative health care 2:19 PM DIRECTOR OF ENROLLMENT HIV-1/HIV-2 ROUTINE Routine 06/12/2018 Type 2 diabetes [...] CHEMISTRIES STAT 04/09/2018 4:40 AM CDT after 12/21/2017 Results * [facility] SURGICAL PATHOLOGY (12/18/2018 5:08 PM CDT) HX FINAL CALCULI, LEFT KIDNEY, REMOVAL: COPATH DIAGNOSIS -LEFT KIDNEY STONE (GROSS EVAUATION ONLY) Comment:The specimen has been sent for chemical analysis.The results will be reported separately and may be found in Epic in the patient's chart under "reference tests" tab. "I have personally reviewed the resident's gross description and all specimen preparations and have personally issued this report." Narrative Performed At Name NADIA BUCK Date of 1960 Hospital Number [id number] Location [facility] Radiology SURGICAL PATHOLOGY Collected:12/18/2018 17:08 Received: 12/19/2018 08:15 PATHOLOGIC DIAGNOSIS CALCULI, LEFT KIDNEY, REMOVAL: -LEFT KIDNEY STONE (GROSS EVAUATION ONLY) Comment:The specimen has been sent for chemical analysis.The results will be reported separately and may be found in Epic in the patient's chart under "reference tests" tab. "I have personally reviewed the resident's gross description and all specimen preparations and have personally issued this report." Pertinent Clinical Information Left kidney stone. Specimen: Left kidney stone for chemical analysis. Gross Description This case is received in one part: Received fresh, labeled with the patient's name, MRN and "LEFT KIDNEY STONE FOR CHEMICAL ANALYSIS" are multiple irregular, torrez-bruce calculi (aggregating to 1.5 x 1.0 x 0.3 cm) which are sent to [facility] for chemical analysis. Specimen sent to: [facility] [place], [place] [id number] Lesia Ulrich/[id number] Shared Services And Outsourcing Manager Microscopic Description Microscopic examination not performed (grossexamination only). Electronically Signed Out Shana Quintana M.D./[id number] Staff Pathologist Performing Organization Address [facility] Phone Number [place], [place] * GLUCOSE POC (12/18/2018 2:21 PM CDT) Only the most recent of 18 results within the time period is included. Glucose POC 164 (H) 74 - 106 mg/dL [facility] MAIN-STATION 1 Performing Organization Address [facility] Phone Number MISYS [facility] MAIN-STATION 1 * URINE CULTURE (12/06/2018 1:46 PM CDT) Only the most recent of 2 results within the time period is included. Spec Clean catch urine LB Description MICROBIOLOGY Order Comments None [facility] MICROBIOLOGY Culture Resembles mixed uro-genital [facility] MICROBIOLOGY terry Report Status Final 12/09/2018 [facility] MICROBIOLOGY Specimen Urine clean catch - CLEAN CATCH URINE Performing Organization Address [facility] Phone Number MISYS [facility] MICROBIOLOGY BT MICROBIOLOGY * UA CHEMISTRIES (12/06/2018 11:58 AM CDT) Only the most recent of 3 results within the time period is included. Color Yellow [facility] MAIN-STATION 1 Clarity Clear [facility] 1 Spec Anderson 1.015 1.001 - 1.035 [facility] 1 pH 6.5 5 - 8 [facility] MAIN-STATION 1 Protein Trace (A) NEG [facility] MAIN-STATION 1 Glucose Negative NEG [facility] MAIN-STATION 1 Ketone Negative NEG [facility] MAIN-STATION 1 Bilirubin Negative NEG [facility] MAIN-STATION 1 Nitrate Negative NEG [facility] MAIN-STATION 1 Urobilinogen 0.2 0.2 - 1.0 EU/dL [facility] MAIN-STATION 1 Leukocyte 1+ (A) NEG [facility] MAIN-STATION 1 Blood 2+ (A) NEG [facility] MAIN-STATION 1 RBC 23 (H) 0 - 4 /HPF [facility] MAIN-STATION 2 WBC 24 (H) 0 - 5 /HPF [facility] MAIN-STATION 2 Epithelial Cell 1 /HPF [facility] MAIN-STATION 2 Mucous Present [facility] MAIN-STATION 2 Specimen Urine Performing Organization Address [facility] Phone Number MILAN [facility] MAIN-STATION 1 [facility] MAIN-STATION 2 * BMP POC (12/05/2018 9:56 AM CDT) Only the most recent of 3 results within the time period is included. CO2 POC 25Comment: Physician Notified 21 - 32 mmol/L [facility] MAIN-STATION 1 Chloride POC 97 (L) 98 - 107 mmol/L [facility] MAIN-STATION 1 Potassium POC 3.5 3.50 - 5.10 mmol/L [facility] MAIN-STATION 1 Sodium POC 137 136 - 145 mmol/L [facility] MAIN-STATION 1 Glucose POC 260 (H) 74 - 106 mg/dL [facility] MAIN-STATION 1 Urea Nitrogen 18 7 - 18 mg/dL [facility] POC MAIN-STATION 1 Creatinine POC 0.7 0.6 - 1.3 mg/dL [facility] MAIN-STATION 1 Calcium Ionized 1.11 (L) 1.15 - 1.29 mmol/L [facility] POC MAIN-STATION 1 Hemoglobin POC 13.6 12.0 - 16.0 g/dL [facility] MAIN-STATION 1 Hematocrit POC 40.0 37.0 - 47.0 % [facility] MAIN-STATION 1 GFR, Estimated >60 mL/min/1.73 m2 [facility] MAIN-STATION 1 GFR, Estim, >60 mL/min/1.73 m2 [facility] Afr-Am MAIN-STATION 1 Performing Organization Address [facility] Phone Number [place] [facility] MAIN-STATION 1 * 12 LEAD EKG (12/05/2018 9:47 AM CDT) 12 LEAD EKG FOR [facility] Renaldo Fraire [facility] Test Date:2018-12-05 Pat Name: NADIA BUCK Department: [id number] Room: Gender: F Smoking Pipe Liner: VIKASH [phone] Requested By: KIKI Hart Order Number: [id number] Reading MD: Stephen GUZMÁN Measurements Intervals [place] Rate: 104 P: 9 UT: 140 QRS: 53 QRSD: 85 T:9 QT: 338 QTc:446 Interpretive Statements SINUS TACHYCARDIA NONSPECIFIC ST & T-WAVE ABNORMALITY ABNORMAL ECG Electronically Signed On 12-05-2018 10:33:27 CDT by Stephen GUZMÁN Performing Organization Address City/[facility] Phone Number SMS * PT/INR (12/05/2018 9:46 AM CDT) PT 13.2 11.8 - 15.0 Seconds [facility]ST[facility] 4 INR 1.0 [facility] SUGGESTED THERAPEUTIC RANGES: MAIN-STATION 4 INR 2.0-3.0 for MODERATE INTENSITY ANTICOAGULATION INR 2.5-3.5 for HIGH INTENSITY ANTICOAGULATION Specimen Blood Performing Organization Address City/[facility] Phone Number MISYS [facility] 4 * CBC/DIFF (12/05/2018 9:46 AM CDT) Only the most recent of 8 results within the time period is included. WBC 5.4 4.5 - 11.0 K/uL [facility] 2 RBC 4.83 4.20 - 5.40 M/uL [facility] 2 Hemoglobin 13.7 12.0 - 16.0 [...] 0.0 [facility] 2 Absolute NRBC 0.00 [facility] MAIN-STATION 2 Neutrophil 61.0 34.0 - 70.0 % [facility] MA[facility]-STATION 2 Lymphocyte 27.9 20.0 - 50.0 % [facility] MA[facility]-STATION 2 Monocyte 7.7 5.0 - 12.0 % [facility] MAIN-STATION 2 Eosinophil 2.6 0.7 - 5.0 % [facility] MA[facility]-STATION 2 Basophil 0.6 0.1 - 1.2 % [facility] MA[facility]-STATION 2 Pct Immat Gran 0.2 0.0 - 0.5 [facility] MA[facility] 2 Neutrophil, Abs 3.32 1.56 - 6.13 K/uL [facility] MAIN-STATION 2 Lymphocyte, Abs 1.52 1.18 - 3.74 K/uL [facility] MAIN-STATION 2 Monocyte, Abs 0.42 (H) 0.24 - 0.36 K/uL [facility] MA[facility]-STATION 2 Eosinophil, Abs 0.14 0.04 - 0.36 K/uL [facility] MAIN-STATION 2 Basophil, Abs 0.03 0.01 - 0.08 K/uL [facility] MAIN-STATION 2 Absol Immat 0.01 0.00 - 0.03 K/uL [facility] Gran MAIN-STATION 2 Specimen Blood Performing Organization Address [facility] Phone Number [facility] MAIN-STATION 2 * PHOSPHORUS (10/23/2018 5:20 AM DIRECTOR OF ENROLLMENT) Only the most recent of 4 results within the time period is included. Phosphorus 3.5 2.5 - 5.0 mg/dL [facility] MAIN-STATION 1 Specimen Blood Performing Organization Address [facility] Phone Number [facility] * MAGNESIUM (10/23/2018 5:20 AM DIRECTOR OF ENROLLMENT) Only the most recent of 4 results within the time period is included. Magnesium 2.1 1.9 - 2.7 mg/dL [facility] 1 Specimen Blood Performing Organization Address [facility] Phone Number [facility] * BASIC METABOLIC PANEL (10/23/2018 5:20 AM DIRECTOR OF ENROLLMENT) Only the most recent of 4 results within the time period is included. CO2 29 21 - 31 mmol/L [facility] MAIN-STATION 1 Chloride 105 98 - 107 mmol/L [facility] MAIN-STATION 1 Potassium 3.7 3.5 - 5.1 mmol/L [facility] MAIN-STATION 1 Sodium 142 136 - 145 mmol/L [facility] MAIN-STATION 1 Glucose 86 70 - 110 mg/dL [facility] MAIN-STATION 1 Urea Nitrogen 8 7 - 25 mg/dL [facility] MAIN-STATION 1 Creatinine 0.60 0.6 - 1.2 mg/dL [facility] MAIN-STATION 1 Anion Gap 8 [facility]IN[facility]STATION 1 Calcium 8.0 (L) 8.6 - 10.3 mg/dL [facility] MAIN-STATION 1 GFR, Estimated >60 mL/min/1.73 m2 [facility] MAIN-STATION 1 GFR, Estim, >60 mL/min/1.73 m2 [facility] Afr-Am MAIN-STATION 1 Specimen Blood Performing Organization Address City/State/Zipcode Phone Number MISYS [facility] MAIN-STATION 1 * U/S ABDOMEN LIMITED (10/22/2018 9:45 AM DIRECTOR OF ENROLLMENT) Impressions Performed At IMPRESSION: SMS 1.Spleen size is at the upper limits of normal. 2.Mild coarsened hepatic echotexture suggesting possible underlying hepatocellular disease. 3.Surgically absent gallbladder. This [facility] radiology report is a preliminary resident dictation until finalized by an attending.Changes to this preliminary report may occur in an additional preliminary or finalized version. Dictated By: Ricardo Rich MD, 10/22/2018 10:05 AM I have reviewed the study and agree with the findings in this report. Signed By: Lex Diamond MD, 10/22/2018 10:30 AM Narrative Performed At EXAM: US ABDOMEN LIMITED [facility] DATE: 10/22/2018 6:44 AM INDICATION: [...] Interface, Rad/Mammog In - 10/22/2018 10:54 AM DIRECTOR OF ENROLLMENT EXAM: US ABDOMEN LIMITED DATE: 10/22/2018 6:44 [...] hepatocellular disease. 3. Surgically absent gallbladder. This [facility] radiology report is a preliminary resident dictation until finalized by an attending. Changes to this preliminary report may occur in an additional preliminary or finalized version. Dictated By: Ricardo Rich MD, 10/22/2018 10:05 AM I have reviewed the study and agree with the findings in this report. Signed By: Lex Diamond MD, 10/22/2018 10:30 AM Performing Organization Address City/[facility] Phone Number SMS * HCV RNA QUANT, PCR (10/22/2018 4:40 AM DIRECTOR OF ENROLLMENT) HCV RNA QUANT, Not detected IU/mL [facility] MOLECULAR PCR Comment: PATHOLOGY This test utilizes FDA cleared STEPHANIE AmpliPrep/STEPHANIE TaqMan HCV test, v2.0 from [employer] which allows detection of viral loads between [...] HCV infection. Specimen Blood Performing Organization Address [facility] Phone Number [facility] MOLECULAR PATHOLOGY * FERRITIN (10/22/2018 4:40 AM DIRECTOR OF ENROLLMENT) Only the most recent of 2 results within the time period is included. Ferritin 24.00 11.0 - 306.8 ng/mL [facility] MAIN-STATION 1 Performing Organization Address [facility] Phone Number MISYS [facility] MAIN-STATION 1 * VITAMIN B12 (10/22/2018 4:40 AM DIRECTOR OF ENROLLMENT) Only the most recent of 2 results within the time period is included. Vitamin B12 279 211 - 911 pg/mL MAIN-STATION 1 Performing Organization Address [facility] Phone Number [facility] MAIN-STATION 1 * LIVER PROFILE (10/22/2018 4:40 AM DIRECTOR OF ENROLLMENT) Only the most recent of 2 results within the time period is included. T Protein 5.2 (L) 6.0 - 8.3 g/dL [facility] MAIN-STATION 1 Albumin 3.1 (L) 3.7 - 5.3 g/dL [facility] MAIN-STATION 1 T Bilirubin 0.6 0.2 - 1.2 mg/dL [facility] MAIN-STATION 1 Alk Phos 36 34 - 104 U/L [facility] MAIN-STATION 1 AST 14 13 - 39 U/L [facility] MAIN-STATION 1 ALT 9 7 - 52 U/L [facility] MAIN-STATION 1 D Bilirubin 0.2 0.0 - 0.2 mg/dL [facility] MAIN-STATION 1 Specimen Blood Performing Organization Address [facility] Phone Number MISYS [facility] MAIN-STATION 1 * IRON PROFILE (10/22/2018 4:40 AM DIRECTOR OF ENROLLMENT) Only the most recent of 2 results within the time period is included. Iron 58 50 - 212 ug/dL [facility] MAIN-STATION 1 TIBC 333 250 - 450 ug/dL [facility] MAIN-STATION 1 % Iron Sat 17 % BT MAIN-STATION 1 Performing Organization Address [facility] [place] Phone Number MISYS BT MAIN-STATION 1 * CITRATED PLATELET (10/21/2018 10:48 AM DIRECTOR OF ENROLLMENT) Citrated 79.2 [facility] Platelet MAIN-STATION 2 Performing Organization Address [facility] Phone Number MISYS [facility] MAIN-STATION 2 * HIV-1/HIV-2 ROUTINE SCREENING (10/21/2018 10:48 AM DIRECTOR OF ENROLLMENT) Only the most recent of 2 results within the time period is included. HIV-1/HIV-2 Negative NEG [facility] BLOOD BANK Performing Organization Address [facility] Phone Number MISYS [facility] BLOOD BANK * DUPLEX DOPPLER UPPER EXTREMITY VENOUS, UNILATERAL OR LIMITED (10/20/2018 6:20 AM DIRECTOR OF ENROLLMENT) Impressions Performed At IMPRESSION: SMS 1.No deep [...] Interface, Rad/Mammog In - 10/20/2018 9:20 AM DIRECTOR OF ENROLLMENT EXAM: DUPLEX DOPPLER UPPER EXTREMITY VENOUS, LEFT [...] MD, 10/20/2018 9:14 AM Performing Organization Address City/[facility] Phone Number SMS * HEMOGLOBIN A1C (10/20/2018 4:00 AM DIRECTOR OF ENROLLMENT) Only the most recent of 2 results within the time period is included. Hemoglobin A1c 5.4 4.3 - 6.1 % [facility] MAIN-STATION 1 Est Average 108.3 mg/dL [facility] Gluc MAIN-STATION 1 Specimen Blood Performing Organization Address [facility] Phone Number MISYS [facility] MAIN-STATION 1 * URINE DRUG SCREEN (10/20/2018 4:00 AM DIRECTOR OF ENROLLMENT) Amphetamine Negative NEG [facility] Comment: MAIN-STATION 1 Calibrated Standard: D-Methamphetamine Positive if urine level >kd=2429 ng/mL Test performed on [id number] using EMIT Immunoassay Barbiturate Negative NEG [facility] Comment: MAIN-STATION 1 Calibrated Standard: Secobarbital Positive if urine level is >vi=036 ng/mL Test performed on [id number] using EMIT Immunoassay Benzodiazepine Negative NEG [facility] Comment: MAIN-STATION 1 Calibrated Standard: Lormethazepam Positive if urine level is >ct=139 ng/mL Test performed on [id number] using EMIT Immunoassay Cannabinoid Negative NEG [facility] Comment: MAIN-STATION 1 Calibrated Standard: 11 nor-delta(9)-THC carboxylic a Positive if urine level >or=50 Test performed on [id number] using EMIT Immunoassay Cocaine Negative NEG [facility] Comment: MAIN-STATION 1 Calibrated Standard: Benzoylecgonine Positive if urine level >qg=215 Test performed on [id number] using EMIT Immunoassay Opiate, Ur Positive (A) NEG [facility] Comment: MAIN-STATION 1 Calibrated Standard: Morphine Positive if urine level >od=730 Test performed on [id number] using EMIT Immunoassay PCP Negative NEG [facility] Comment: MAIN-STATION 1 Calibrated Standard: Phencyclidine Positive if urine level >or=25 Test performed on [id number] using EMIT Immunoassay Urine Toxicology Screen results are to be used only for Medical purposes. Specimen Urine Performing Organization Address [facility] Phone Number GIDEONYS [facility] MAIN-STATION 1 * ABG POC (10/19/2018 8:00 PM DIRECTOR OF ENROLLMENT) pH, Art POC 7.41Comment: Physician 7.35 - 7.45 [facility] Notified MAIN-STATION 1 pCO2,Art POC 39.1 32.0 - 45.0 mm Hg [facility] MAIN-STATION 1 pO2, Art POC 51 (L) 72 - 104 mm Hg LB MAIN-STATION 1 Base Excess, 0 mmol/L [facility] ART POC MAIN-STATION 1 HCO3, Art POC 25.0 22.0 - 26.0 mmol/L LB MAIN-STATION 1 % Sat, Art POC 86 (L) 95 - 99 % LB MAIN-STATION 1 Lactic Acid POC 2.71 (H) 0.4 - 2.0 mmol/L [facility] MAIN-STATION 1 Sample Type Art [facility] MAIN-STATION 1 TCO2, ART POC 26 21 - 32 mmol/L [facility] MAIN-STATION 1 Performing Organization Address [facility] Phone Number MILAN [facility] MAIN-STATION 1 * CT ABDOMEN AND PELVIS CONTRAST (10/19/2018 2:28 PM DIRECTOR OF ENROLLMENT) Impressions Performed At IMPRESSION: SMS 1. 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: :[id number] Requested By: PÉREZ Hart Order Number: [id number] Reading MD: Randy Arteaga Measurements Intervals [place] Rate: 91 P:37 UT: 161 QRS: 66 QRSD: 84 T:69 QT: 385 QTc:476 Interpretive Statements SINUS RHYTHM WITH FREQUENT VENTRICULAR PREMATURE COMPLEXES Abnormal ECG Electronically Signed On 10-19-2018 14:00:24 DIRECTOR OF ENROLLMENT by Randy Arteaga Performing Organization Address [facility] Phone Number SMS * VBG POC (10/19/2018 12:05 PM DIRECTOR OF ENROLLMENT) pH, Taj POC 7.47 (H)Comment: Physician 7.33 [...] mmol/L [facility] MAIN-STATION 1 Performing Organization Address [place]/[facility] Phone Number MISYS [facility] MAIN-STATION 1 * TROPONIN I POC (10/19/2018 12:03 PM DIRECTOR OF ENROLLMENT) Troponin POC 0.01Comment: Physician 0.00 - 0.08 ng/mL [facility] Notified MAIN-STATION 1 Performing Organization Address [facility] Phone Number MISYS [facility] MAIN-STATION 1 * LIPASE (10/19/2018 11:58 AM DIRECTOR OF ENROLLMENT) Lipase 32 11 - 81 U/L [facility] MAIN-STATION 1 Specimen Blood Performing Organization Address [facility] Phone Number MISYS [facility] MAIN-STATION 1 * OCCULT BLOOD ICT (07/13/2018 2:19 PM DIRECTOR OF ENROLLMENT) Occult Blood Negative NEG [facility] I[facility] Specimen Stool Performing Organization Address [facility] Phone Number [facility] * ELECTROLYTES (06/12/2018 8:15 AM CDT) Sodium 139 136 - 145 mmol/L BT MAIN-STATION 1 Potassium 4.4 3.5 - 5.1 mmol/L BT MAIN-STATION 1 Chloride 103 98 - 107 mmol/L BT MAIN-STATION 1 CO2 29 21 - 31 mmol/L BT MAIN-STATION 1 Anion Gap 7 BT MAIN-STATION 1 Specimen Blood Performing Organization Address [facility] Phone [facility] * LIPID PROFILE (06/12/2018 8:15 AM CDT) Cholesterol 181 mg/dL BT MAIN-STATION Comment: 1 REFERENCE RANGE: Desirable: <200 mg/dL Borderline: 200-240 mg/dL High Risk: >240 mg/dL Triglyceride 54 <150 mg/dL BT MAIN-STATION Comment: 1 REFERENCE RANGE: Normal: <150 mg/dL Borderline High: 150-199 mg/dL High: 200-499 mg/dL Very High: >hi=374 mg/dL HDL 58 mg/dL [facility] MAIN-STATION Comment: 1 Increased CHD risk: <40 mg/dL Decreased CHD risk: >60 mg/dL LDL 112 mg/dL BT MAIN-STATION Comment: 1 REFERENCE RANGE: Optimal: <100 mg/dL Near Optimal: 100-129 mg/dL Borderline High: 130-159 mg/dL High: 160-189 mg/dL Very High: >er=241 mg/dL Specimen Blood Performing Organization Address [facility] Phone Number MISYS BT MAIN-STATION 1 * [...] a week is recommended. Performing Organization Address City/State/Zipcode Phone Number MISYS [...] normal, left foot appearance is normal. after 12/21/2017 Insurance Type Payer Benefit Subscriber ID Effective Phone Address Plan / Dates Group [employer] [place] xxxxxxx 2018- [phone] [address] INDIGENT FAMILY Present [id number] PLANN[place], [place] [address] [employer] [facility] CIGNA xxxxxxxx 2018-5 [address] [place] [address] [place] [id number] xxxxxxxxx 2018- [phone] QUALIFIED Present 2005 MEDICARE [place], [place] BENEFICIAR [id number] Y [employer] PLAN HCHD PLAN xxxxxxx 2018- [phone] [address] [address] [address] [place] [address] Advance Directives For more information, please contact: [id number] [place] [address] Date Inactivated Comments Code Status Date Activated 10/23/2018 4:51 PM Full Code 10/19/2018 10:16 PM 10/19/2018 10:16 PM Full Code 10/19/2018 8:21 PM
--- NOTE | 2018-12-22 14:24 | NUR ---
report received, patient to arrive on unit via stretcher, alert and oriented.
[2018-12-22] MEDS: MORPHINE SULFATE INJ 4 MG/ML INJ 1ML IV PRN ×3 (14:27→23:20)
[2018-12-22] MEDS: POTASSIUM CHLORIDE 10MEQ/100ML 100 ML IV SCH ×3 (14:30→16:55)
--- NOTE | 2018-12-22 14:30 | NUR ---
report called to Nadia for this patient to go to rm 100.
[2018-12-22 14:50] LABS: INR 0.97; PARTIAL THROMBOPLASTIN TIME 23.7 seconds (23.8-35.5); PROTHROMBIN TIME 13.4 seconds (11.9-14.5)
[2018-12-22 14:55] VITALS: BP 139/76
[2018-12-22 15:02] VITALS: BP 139/76
[2018-12-22] MEDS ORDERED: HYOSCYAMINE SL (15:02)
[2018-12-22] MEDS ORDERED: STOOL SOFTENER100 MG (15:02)
[2018-12-22] MEDS ORDERED: valsartan (15:02)
[2018-12-22] MEDS ORDERED: METFORMIN HCL500 MG PO (15:02)
[2018-12-22] MEDS ORDERED: ULTRAM50 MG PO (15:02)
[2018-12-22 15:22] VITALS: BP 139/76
[2018-12-22] MEDS: SODIUM CHLORIDE 0.9% 1000ML 1,000 ML IV SCH ×2 (15:56→20:00)
[2018-12-22] MEDS: METOCLOPRAMIDE HCL 10 MG/2ML VIAL IV SCH ×2 (18:11→23:37)
[2018-12-22] MEDS: CEFTRIAXONE SOD 1 GM/NS 50 ML 50 ML IV SCH (18:11)
[2018-12-22 20:00] VITALS: BP 110/50
[2018-12-22 22:07] LABS: CREATINE KINASE MB 0.8 ng/mL (0-5.0)
[2018-12-23] VITALS (7 sets, daily range): BP systolic 100–134; BP diastolic 54–79
[2018-12-23] MEDS: SODIUM CHLORIDE 0.9% 1000ML 1,000 ML IV SCH ×4 (01:20→22:40)
[2018-12-23] MEDS: MORPHINE SULFATE INJ 4 MG/ML INJ 1ML IV PRN ×3 (04:45→13:13)
[2018-12-23] MEDS: METOCLOPRAMIDE HCL 10 MG/2ML VIAL IV SCH ×4 (06:00→23:58)
[2018-12-23] MEDS: INSULIN LISPRO 100 UNIT/1 ML 3ML VIAL SQ SCH ×4 (06:00→23:58)
[2018-12-23 06:08] LABS: BASOPHILS % 0.4 % (0.0-1.0); EOSINOPHILS # (AUTO) 0.1 (0.0-0.4); EOSINOPHILS % 2.2 % (0.0-6.0); HEMATOCRIT 28.8 % (34.2-44.1); LYMPHOCYTES # (AUTO) 1.5 (1.0-3.2); LYMPHOCYTES % 29.3 % (18.0-39.1); MEAN CORPUSCULAR HEMOGLOBIN 28.9 pg (28-32); MEAN CORPUSCULAR HGB CONC 34.7 g/dL (31-35); MEAN CORPUSCULAR VOLUME 83.2 fL (81-99); MONOCYTES # (AUTO) 0.4 (0.2-0.8); MONOCYTES % 7.9 % (4.4-11.3); NEUTROPHILS # (AUTO) 3.1 (2.1-6.9); NEUTROPHILS % 59.8 % (38.7-80.0); PLATELET COUNT 112 x10e3/uL (140-360); RED BLOOD COUNT 3.46 x10e6/uL (3.6-5.1); RED CELL DISTRIBUTION WIDTH 12.7 % (11.7-14.4)
[2018-12-23 06:34] LABS: ALANINE AMINOTRANSFERASE 8 IU/L (0-55); ALBUMIN 2.6 g/dL (3.5-5.0); ALBUMIN/GLOBULIN RATIO 1.1 (0.8-2.0); ALKALINE PHOSPHATASE 43 IU/L (40-150); ANION GAP 10.6 mmol/L (8-16); BLOOD UREA NITROGEN 9 mg/dL (7-26); BUN/CREATININE RATIO 11 (6-25); CALCIUM 7.7 mg/dL (8.4-10.2); CARBON DIOXIDE 24 mmol/L (22-29); CHLORIDE 108 mmol/L (98-107); CREATININE, SERUM 0.82 mg/dL (0.57-1.11); EST GLOMERULAR FILTRATION RATE > 60 ML/MIN (60-); GLUCOSE 126 mg/dL (74-118); POTASSIUM 3.6 mmol/L (3.5-5.1); SODIUM 139 mmol/L (136-145)
[2018-12-23 07:00] LABS: CREATINE KINASE MB 0.7 ng/mL (0-5.0)
[2018-12-23] MEDS: ONDANSETRON HCL INJ 2MG/ML 2ML 2 MG/ML VIAL IV PRN (08:45)
--- NOTE | 2018-12-23 13:00 | Consultation ---
DATE OF CONSULTATION: 12/23/2018 Urology Consultation CHIEF COMPLAINT/REASON FOR CONSULTATION: Stent, polyneuritis. HISTORY OF PRESENT ILLNESS: Ms. Mckeon is a 58-year-old female, who is status post left-sided stent placement in [facility] on December 18, 2018, admitted to the hospital with nausea and vomiting. Has had hematuria and denied current fevers. No chills. PAST MEDICAL HISTORY: As above with hypertension, diabetes mellitus, hyperlipidemia, TIA, kidney stones, anxiety, GERD, obstructive apnea, status post Stephanie fundoplication, status post bilateral tubal ligation, status post cholecystectomy, status post appendectomy, status post stent placement at [facility] on 12/18/2018. MEDICATIONS: Please see MAR. ALLERGIES: NKDA. SOCIAL HISTORY: Nonsmoker. No drinking. FAMILY HISTORY: Denied urologic stones or malignancies. REVIEW OF SYSTEMS: Noncontributory other than problems mentioned above for 12 organ systems. PHYSICAL EXAMINATION: GENERAL: Elderly female, in no acute distress currently. VITAL SIGNS: She is afebrile. Stable vital signs. EYES: Sclerae anicteric. NECK: Supple. BACK: NO costovertebral angle tenderness bilaterally. ABDOMEN: Soft, nontender, and nondistended. No palpable mass. No palpable hernias. No palpable adenopathy. : Normal female external genitalia. EXTREMITIES: No edema. NEUROLOGIC: Moves 4 extremities. PSYCH: Alert. Mood is appropriate. SKIN: Intact. Normal color. PERTINENT LABORATORY DATA: CT scan revealing a liver cyst, left ureteral stent in adequate position, left hydronephrosis, left lower pole stone, left lower pole cyst, uterine fibroids, left splenic to renal vein shunt. Sodium 134, potassium 3.4, chloride 98, bicarb 23, BUN 14, creatinine 0.87, and glucose 367. Hemoglobin 13, hematocrit 38, platelet count 144,000, and white cell count 6860. Urinalysis; greater than 50 reds, greater 50 whites. IMPRESSION: 1. Left ureteral stent. 2. Left hydronephrosis. 3. Left renal calculus. 4. Left renal cyst. 5. Urinary tract infection. 6. Microscopic hematuria. 7. Hyponatremia. 8. Hypokalemia. PLAN: The patient's nausea maybe diabetic related versus stent related. We will make sure the patient has culture-specific antibiotics, remove the stent and render the patient stone free on this admission. A 48 hours on current antibiotic therapy for this would be possible. Thank you for allowing me to participate in the care of your patient. We will be happy to follow along with you. MD JAMES Song/MODL /[id number] cc: Ji Ch MD MTDD
[2018-12-23] MEDS: CEFTRIAXONE SOD 1 GM/NS 50 ML 50 ML IV SCH (18:21)
--- NOTE | 2018-12-23 18:40 | NUR ---
rounded with knowledge analyst nurse, patient currently using the restroom, but aware of change and in no distress.
[2018-12-23] MEDS ORDERED: TEMAZEPAM15 MG PO (20:42)
--- NOTE | 2018-12-23 20:44 | NUR ---
INFORMED DR. PETTIT REGARDING PT REQUEST TO CONTINUE HOME MED TEMAZEPAM 30MG. NEW ORDER RCV TO CONTINUE.
[2018-12-23] MEDS: TEMAZEPAM 15 MG CAP PO SCH ×2 (21:00→21:13)
[2018-12-24] VITALS (9 sets, daily range): BP systolic 116–142; BP diastolic 56–77
[2018-12-24] MEDS: SODIUM CHLORIDE 0.9% 1000ML 1,000 ML IV SCH (02:01)
--- NOTE | 2018-12-24 04:45 | NUR ---
DR. PETTIT DOING ROUNDS AT THIS TIME. NEW ORDERS RCV TO DC IV FLUIDS AND TO ADVANCE DIET.
[2018-12-24] MEDS: METOCLOPRAMIDE HCL 10 MG/2ML VIAL IV SCH ×4 (05:27→23:34)
[2018-12-24] MEDS: INSULIN LISPRO 100 UNIT/1 ML 3ML VIAL SQ SCH ×4 (08:15→21:00)
[2018-12-24] MEDS: MORPHINE SULFATE INJ 4 MG/ML INJ 1ML IV PRN ×3 (09:25→19:30)
[2018-12-24] MEDS: ONDANSETRON HCL INJ 2MG/ML 2ML 2 MG/ML VIAL IV PRN (09:25)
--- NOTE | 2018-12-24 17:44 | NUR ---
Nutrition Intervention Note RD Recommendation(s) for Physician: - Continue current diet - Recommend probiotic BID Plan of Care: RD following, monitoring for tolerance and adequacy Nutrition reason for involvement: Nutrition Risk Trigger RD Assessment 12/24: 58 YOF admitted for dehydration and vomiting with recent L ureteral stent placement at [facility] on 12/18. Pt discussed during am rounds. Pt seen today per MST score. Pt reports N/V x days since stent placement and abx initiated. Pt reports UBW of "in the 140's" within the past 3-6 months, no wt loss noted. Pt's diet advanced to 1800 ADA this am, tolerating solids with good po intake. No N/V or abdominal pain currently, pt reports diarrhea this am. Pt with no questions or concerns at time of visit. Will monitor and continue to follow. Principal Problems/Diagnoses: dehydration, vomiting, recent L ureteral stent placement PMH: HTN, DM, HLD, TIA, kidney stones, GERD, abi fundoplication, cholecystectomy GI: LBM 12/24 Skin: intact Labs: 12/23: Na 139, K 3.6, BUN 9, Cr 0.82, Gluc 126 Meds: reglan, zofran, abx, lispro Ht: 65 in Wt: 140 lb BMI: 23.3 IBW: 125 lb Malnutrition Evaluation (12/24/18) The patient does not meet criteria for a specified degree of malnutrition at this time. Will re-evaluate at follow-up as appropriate. Diet Adequacy: Not meeting calorie needs, Not meeting protein needs Diet Education Needs Assessment: Diet education not indicated at this time. Nutrition Care Level: Low Nutrition Diagnosis: Inadequate energy and protein intake related to recent medical procedure and abx as evidenced by vomiting, dehydration, poor diet tolerance, and not meeting needs. Goal: Patient will meet 75-100% of estimated needs by follow up Progress: N/A Interventions: CHO modified diet, Collaboration with other providers Monitoring/Evaluation: Total energy intake, Total protein intake, Modified diet Signed: Kaykay Gale RD, LD, [facility]
[2018-12-24] MEDS: CEFTRIAXONE SOD 1 GM/NS 50 ML 50 ML IV SCH (18:06)
[2018-12-24] MEDS: TEMAZEPAM 15 MG CAP PO SCH (20:44)
[2018-12-25] VITALS: BP 109/61
[2018-12-25 04:00] VITALS: BP 128/72
[2018-12-25] MEDS: MORPHINE SULFATE INJ 4 MG/ML INJ 1ML IV PRN (04:07)
[2018-12-25] MEDS: METOCLOPRAMIDE HCL 10 MG/2ML VIAL IV SCH ×2 (05:35→11:52)
--- NOTE | 2018-12-25 07:05 | NUR ---
PT BEDSIDE SHIFT REPORT DONE. NO DISCOMFORT NOTED
[2018-12-25] MEDS: INSULIN LISPRO 100 UNIT/1 ML 3ML VIAL SQ SCH (08:30)
[2018-12-25] MEDS ORDERED: ONDANSETRON HCL 4 MG ORAL DISINTEGRATING TAB PO PRN (08:45)
--- NOTE | 2018-12-25 08:55 | NUR ---
PT CO PAIN IN EPIGASTRIC AREA. MEDICATED ORDERED.
[2018-12-25] MEDS ORDERED: HYDROCODONE/APAP 10MG-325MG TAB PO PRN (09:00)
[2018-12-25 09:27] VITALS: BP 153/87
[2018-12-25 12:00] VITALS: BP 157/80
[2018-12-25] MEDS ORDERED: LEVAQUIN500 MG PO (12:37)
--- NOTE | 2018-12-25 13:05 | NUR ---
PT GIVEN DC INSTRUCTION, ALONG WITH PRESCRIPTION EARLIER. IV REMOVED. AND PT ACCOMPANIED VINI BY STAFF VIA WC
--- NOTE | 2018-12-26 11:15 | Discharge Summary ---
DISCHARGE DIAGNOSES: 1. Urinary tract infection. 2. Diabetes. 3. Anxiety disorder. 4. Hematuria. HISTORY OF PRESENT ILLNESS AND HOSPITAL COURSE: See hospital chart for full details. The patient is a lady, well known to me with history of diabetes, who recently has had some issues with kidney stones, where she has had a stent placed, though still intact, who presents with nausea, vomiting, decreased p.o. intake, showing signs of urinary tract infection. She was placed on IV antibiotics and blood cultures . She was seen by Dr. Renner stent was removed. Each day, the patient has significant improvement to the point she was able to eat and drink okay well over 36 hours prior to discharge. At time of discharge, she is very happy to go to home. She is to follow up with me in 2 weeks as well as with Dr. Renner in 2 to 3 weeks. She was send home with p.o. antibiotics as well as continuation of her home medicines. Please see hospital chart for full details. MD RICHARD Farfan/CALEB /[id number]
== END 2018-12-25 13:05 | disposition home or self-care (01) ==
LOC: ER 12:29 → ERHOLD 14:18 → MED/SURG 14:50
PROVIDERS: ADMIT Internal Medicine; ATTEND Internal Medicine
DX: N13.6 Pyonephrosis (principal); E86.0 Dehydration; Z88.8 Allergy status to other drugs, medicaments and biological substances; I10 Essential (primary) hypertension; E11.9 Type 2 diabetes mellitus without complications; E78.5 Hyperlipidemia, unspecified; Z86.73 Personal history of transient ischemic attack (TIA), and cerebral infarction without residual deficits; Z87.442 Personal history of urinary calculi; F41.9 Anxiety disorder, unspecified; F20.9 Schizophrenia, unspecified; K21.9 Gastro-esophageal reflux disease without esophagitis; F17.200 Nicotine dependence, unspecified, uncomplicated; Z82.49 Family history of ischemic heart disease and other diseases of the circulatory system; F31.9 Bipolar disorder, unspecified; N39.0 Urinary tract infection, site not specified; Z96.0 Presence of urogenital implants; R31.29 Other microscopic hematuria; E87.1 Hypo-osmolality and hyponatremia; E87.6 Hypokalemia; D64.9 Anemia, unspecified; Z79.84 Long term (current) use of oral hypoglycemic drugs
CPT/HCPCS: 36415 ×4; 80053 ×2; 81001; 82150; 82550 ×2; 82553 ×2; 82948 ×4; 83605; 83690; 83735; 84484 ×2; 85025 ×2; 85610; 85730; 87040; 87086; 87400; 93005; 96372; 99284; G0378 ×4; J0696 ×3; J1200; J2270 ×4; J2405 ×2; J2765 ×4; J3480; J7030 ×3